=== PATIENT | female | born 1985 | race Caucasian/White ===

== ENCOUNTER → 2021-12-23 14:55 | Outpatient (BNVA) | payer BC, MEDICAID, SELFPAY | PROVIDERS: Visit Provider Internal Medicine | DX: E10.9 Type 1 diabetes mellitus without complications (principal); E03.9 Hypothyroidism, unspecified; E78.2 Mixed hyperlipidemia | CPT/HCPCS: 36415; 80053; 80061; 82044; 83036; 84439; 84443; 84480 ==

== ENCOUNTER 2022-04-27 03:05 | Inpatient (IN) | payer BC, MEDICAID, SELFPAY ==
[2022-04-27] VITALS (143 sets, daily range): BP systolic 111–166; BP diastolic 55–97; PULSE 88–136; RESP 12–34; TEMP 36.4–37.2; O2SAT 94–100; BMI 25.5
[2022-04-27 03:31] LABS: Glucose Point of Care 363 mg/dL (70-110)
[2022-04-27 04:03] LABS: Arterial Blood Gas Hematocrit 49.9 % (37-47); Base Excess ABG -21.9 mmol/L (-2.0-2.0); Blood Gas Allen Test Pos; Blood Gas Sample Site Radial, right; Blood Gas Sample Type Arterial; HCO3 ABG 4.7 mmol/L (22-26)
[2022-04-27 04:04] LABS: ABG PCO2 14.1 mmHg (35-45); ABG PH Result 7.13 (7.35-7.45)
[2022-04-27 04:08] LABS: Basophils # 0.1 10^3/uL (0.0-0.1); Basophils % 0.7 %; Eosinophils # 0.1 10^3/uL (0.0-0.8); Eosinophils % 0.4 %; Hematocrit 51.3 % (37.0-47.0); Hemoglobin 16.4 g/dL (11.5-15.3); Lymphocytes # 2.5 10^3/uL (0.8-4.8); Lymphocytes % 18.7 %; Mean Corpuscular Hemoglobin 28.4 pg (28.0-34.0); Mean Corpuscular Volume 88.9 fl (81-99); Mean Platelet Volume 9.5 fL (7.4-10.4); Monocytes # 1.1 10^3/uL (0.2-0.9); Monocytes % 8.2 %; Neutrophils # 9.67 10^3/uL (1.8-7.7); Neutrophils % 71.6 %; Nucleated Red Blood Cells % 0 %; Platelet Count 316 10^3/cmm (130-400); Red Blood Count 5.77 10^6/uL (4.1-5.3); Red Cell Distribution Width 14.5 % (12.1-15.1); White Blood Count 13.5 10^3/uL (4.0-10.0)
[2022-04-27] MEDS: insulin regular-human 100 units/1 mL 12 UNIT IVP (04:13)
[2022-04-27] MEDS: sodium chloride 0.9% 1,000 ML 999 ML IV ×2 (04:17→05:45)
--- NOTE | 2022-04-27 04:22 | W.ED.GENADLT ---
HPI - General Adult General: Chief complaint: General Medical Stated complaint: Sugar in 300 Diabetic Time Seen by Provider: 04/27/22 03:45 Source: patient History of Present Illness: 36-year-old female type I diabetic. She notes that she has felt ill for the last 48 hours or so. She is thrown up a couple of times. Currently she is nauseated. Her blood sugars been in the upper 300s, and she has been bolusing her insulin pump without improvement in her blood sugars. Onset (ago): hour(s) Radiation: other Severity: moderate Quality: other Pain Consistency: other Relieving factors: other Exacerbating factors: other Associated symptoms: Reports headache(s), nausea, vomiting and weakness (Generalized); Deny chest pain, confusion, cough, diaphoresis, dyspnea, fevers/chills or rash Review of Systems Const: Denies: fever(s) or diaphoresis ENMT: Denies: throat pain Card: Denies: chest pain Resp: Denies: dyspnea, productive cough or non-productive cough GI: Reports: nausea and vomiting Skin/Breast: Denies: rash Neuro: Reports: headache(s); Denies: confusion PFSH ED PFSH: Medical History Hyperlipemia, mixed Hypothyroid Type 1 diabetes Surgical History No history of previous surgery Family History Mother Hypertension Grandmother Hypertension Denies family history of Diabetes CAD (coronary artery disease) Chronic kidney disease (CKD) Family history of premature coronary artery disease Cancer Stroke Social History Smoking and tobacco status: never smoked Alcohol intake: never Lives independently: Yes Household members: significant other Marital status: Single Number of children: 0 Current occupational status: employed Current occupation: [employer] Sexually active: Yes Physical Exam Const: GENERAL APPEARANCE: cooperative and ill appearing; not frail appearing HENMT: COMMON NORMALS: normocephalic, atraumatic and Normal external nose present HEAD & SCALP: normocephalic and atraumatic FACE & SINUS: normal facial exam and face symmetric NOSE: Normal external nose present Eye: COMMON NORMALS: Equal, round and reactive pupils present and EOMs intact bilaterally PUPIL: Yes Equal, round and reactive pupils present Neck/C-Spine: GENERAL: Yes trachea midline Chest: CHEST: Yes Symmetrical chest wall rise Resp: COMMON NORMALS: normal respiratory effort, No retractions, No use of accessory muscles and clear to auscultation bilaterally AUSCULTATION: clear to auscultation bilaterally Cardio: COMMON NORMALS: regular rhythm RATE: tachycardic RHYTHM: regular rhythm GI: COMMON NORMALS: Normal to inspection, nondistended, normoactive bowel sounds present Extremity: COMMON NORMALS: no pedal edema Neuro: SENDY COMA SCALE: document GCS findings Sendy coma scale eye opening: Spontaneous Sendy coma scale verbal response: Orientated Sendy coma scale motor response: Obey commands [place] coma scale total score: 15 SENSORY EXAM: Yes extremities (intact) Psych: COMMON NORMALS: speech normal SPEECH: Yes normal speech Skin: COMMON NORMALS: no rashes or lesions noted GENERAL SKIN EXAM: no rashes or lesions noted Course Vital Signs: Vital signs: Vital Signs Temperature 98.7 F 04/27/22 16:40 Pulse Rate 94 04/27/22 16:40 Respiratory Rate 22 H 04/27/22 16:40 Blood Pressure 113/61 04/27/22 16:40 Pulse Oximetry 96 04/27/22 16:40 Oxygen Delivery Me thod 04/27/22 16:40 [facility] - General Adult Medical Decision Making 36-year-old female with high blood sugar. Her pH is 7.13 with PCO2 of 14, and HCO3 of 4.7. Serum ketones are pending. She is given a small insulin bolus, and will be placed on an insulin drip. IV saline going with 2 L bolus to start. She will require ICU admission. Electrolytes are pending. Sodium 128. Potassium 5.1. BUN and creatinine are essentially normal. Patient will go to the ICU on insulin drip. Hospitalist is aware Lab Data 04/27/22 03:43 04/27/22 03:43 Laboratory Results WBC 13.5 10^3/uL (4.0-10.0) H 04/27/22 03:43 RBC 5.77 10^6/uL (4.1-5.3) H 04/27/22 03:43 Hgb 16.4 g/dL (11.5-15.3) H 04/27/22 03:43 Hct 51.3 % (37.0-47.0) H 04/27/22 03:43 MCV 88.9 fl (81-99) 04/27/22 03:43 MCH 28.4 pg (28.0-34.0) 04/27/22 03:43 MCHC 32.0 g/dL (30.0-36.0) 04/27/22 03:43 RDW 14.5 % (12.1-15.1) 04/27/22 03:43 Plt Count 316 10^3/cmm (130-400) 04/27/22 03:43 MPV 9.5 fL (7.4-10.4) 04/27/22 03:43 Neut % (Auto) 71.6 % 04/27/22 03:43 Lymph % (Auto) 18.7 % 04/27/22 03:43 Coal % (Auto) 8.2 % 04/27/22 03:43 Eos % (Auto) 0.4 % 04/27/22 03:43 Baso % (Auto) 0.7 % 04/27/22 03:43 Neut # (Auto) 9.67 10^3/uL (1.8-7.7) H 04/27/22 03:43 Lymph # (Auto) 2.5 10^3/uL (0.8-4.8) 04/27/22 03:43 Coal # (Auto) 1.1 10^3/uL (0.2-0.9) H 04/27/22 03:43 Eos # (Auto) 0.1 10^3/uL (0.0-0.8) 04/27/22 03:43 Baso # (Auto) 0.1 10^3/uL (0.0-0.1) 04/27/22 03:43 Nucleated RBC % (auto) 0 % 04/27/22 03:43 Nucleated RBCs # 0.0 /100WBC 04/27/22 03:43 Specimen Type Arterial 04/27/22 03:50 Sample Site Radial, right 04/27/22 03:50 ABG pH 7.13 (7.35-7.45) L* 04/27/22 03:50 ABG pCO2 14.1 mmHg (35-45) L* 04/27/22 03:50 ABG pO2 122.0 mmHg (80.0-100.0) H 04/27/22 03:50 ABG HCO3 4.7 mmol/L (22-26) L 04/27/22 03:50 ABG Base Excess -21.9 mmol/L (-2.0-2.0) L 04/27/22 03:50 Nile Test Pos 04/27/22 03:50 Hematocrit 49.9 % (37-47) H 04/27/22 03:50 O2 Delivery Device None 04/27/22 03:50 FiO2 21.0 % 04/27/22 03:50 Answerer ID Camronlo 04/27/22 03:50 Sodium 128 mmol/L (136-145) L 04/27/22 03:43 Potassium 5.1 mmol/L (3.5-5.1) 04/27/22 03:43 Chloride 93 mmol/L (98-107) L 04/27/22 03:43 Carbon Dioxide 8 mmol/L (22-29) L* 04/27/22 03:43 Anion Gap 32.1 (5-19) H 04/27/22 03:43 BUN 12 mg/dL (6-20) 04/27/22 03:43 Creatinine 1.0 mg/dL (0.5-0.9) H 04/27/22 03:43 GFR Calculation 63.1 mL/min (90-130) L 04/27/22 03:43 Glucose 384 mg/dL (65-115) H 04/27/22 03:43 POC Glucose 310 mg/dL (70-110) H 04/27/22 05:10 Calculated Osmolality 282 mOsm/kg (285-295) L 04/27/22 03:43 Lactate 1.5 mmol/L (0.5-2.2) 04/27/22 03:43 Calcium 9.2 mg/dL (8.5-10.5) 04/27/22 03:43 Total Bilirubin 0.8 mg/dL (0.15-1.2) 04/27/22 03:43 AST 28 U/L (0-32) 04/27/22 03:43 ALT 62 U/L (0-33) H 04/27/22 03:43 Alkaline Phosphatase 90 U/L (35-105) 04/27/22 03:43 Total Protein 8.8 g/dL (6.6-8.7) H 04/27/22 03:43 Albumin 4.8 g/dL (3.5-5.2) 04/27/22 03:43 Globulin 4.0 g/dL (1.3-4.6) 04/27/22 03:43 HCG, Qual Negative (Negative) 04/27/22 03:43 Urine Color Light yellow (Yellow) 04/27/22 03:54 Urine Appearance Hazy (CLEAR) A 04/27/22 03:54 Urine pH 5 (5-7) 04/27/22 03:54 Ur Specific Erwin 1.025 (1.005-1.030) 04/27/22 03:54 Urine Protein Trace (Negative) 04/27/22 03:54 Urine Glucose (UA) 4+ (Normal) H 04/27/22 03:54 Urine Ketones 3+ (Negative) H 04/27/22 03:54 Urine Blood 2+ (Negative) H 04/27/22 03:54 Urine Nitrate Negative (Negative) 04/27/22 03:54 Urine Bilirubin Neg (Negative) 04/27/22 03:54 Urine Urobilinogen Neg mg/dL (Negative) 04/27/22 03:54 Ur Leukocyte Esterase Trace (Negative) H 04/27/22 03:54 Urine RBC 5-10 /hpf (0-2) H 04/27/22 03:54 Urine WBC 0-4 /hpf (0-5) H 04/27/22 03:54 Ur Squamous Epith Cells 15-25 /hpf (0-5) H 04/27/22 03:54 Amorphous Sediment 1+ /hpf 04/27/22 03:54 Urine Bacteria Trace /hpf (NONE) 04/27/22 03:54 Urine Mucus Trace /hpf 04/27/22 03:54 Serum Ketones Positive (Negative) H 04/27/22 03:43 Critical Care Time Critical Care Time: Critical Care Time: Yes Total Critical Care Time: 35 Attestation: This case had a high probability of a clinically significant, sudden, or life threatening deterioration of this patient's condition which required my full and direct attention, intervention and personal management. Time is independent of any procedures performed Discharge Plan Discharge Patient Disposition: Admitted As Inpatient Admit Provider: Johan Parada Clinical Impression: Diabetic ketoacidosis Condition: Fair Coding Level of Care Code ED Retail Training Manager for [facility] Steve
[2022-04-27 04:24] LABS: Add Urine Microscopic? YES; Bilirubin Urine Neg (Negative); Blood Urine 2+ (Negative); Glucose Urine UA 4+ (Normal); Ketones Urine 3+ (Negative); Leukocyte Esterase Urine Trace (Negative); Nitrate Urine Negative (Negative); Protein Urine Trace (Negative); Specific Gravity, Urine 1.025 (1.005-1.030); Urine Appearance Hazy (CLEAR); Urine Color Light yellow (Yellow); Urobilinogen Urine Neg (Negative); pH Urine 5 (5-7)
[2022-04-27 04:25] LABS: Ketone (Acetest) Serum Positive (Negative)
[2022-04-27 04:26] LABS: Amorphous Sediment Urine 1+ /hpf; Bacteria Urine TRACE /hpf; Mucus Urine TRACE /hpf; Squamous Epithelial Cell Urine 15-25 /hpf (0-5); WBC Urine 0-4 /hpf (0-5)
[2022-04-27 04:27] LABS: Add Urine Culture? No
[2022-04-27 04:28] LABS: HCG, Serum Qual Negative (Negative)
[2022-04-27 04:37] LABS: Alanine Aminotransferase 62 U/L (0-33); Albumin Level 4.8 g/dL (3.5-5.2); Alkaline Phosphatase 90 U/L (35-105); Anion Gap 32.1 (5-19); Aspartate Amino Transferase 28 U/L (0-32); Blood Urea Nitrogen 12 mg/dL (6-20); Calcium 9.2 mg/dL (8.5-10.5); Chloride 93 mmol/L (98-107); Glomerular Filtration Rate 63.1 mL/min (90-130); Glucose 384 mg/dL (65-115); Osmolality Calculated 282 mOsm/kg (285-295); Potassium 5.1 mmol/L (3.5-5.1); Sodium 128 mmol/L (136-145); Total Bilirubin 0.8 mg/dL (0.15-1.2); Total Protein 8.8 g/dL (6.6-8.7)
[2022-04-27 04:38] LABS: Lactate (Lactic Acid level) 1.5 mmol/L (0.5-2.2)
[2022-04-27 04:47] LABS: Carbon Dioxide 8 mmol/L (22-29)
--- NOTE | 2022-04-27 05:02 | PM.HP ---
Providers/Chief Complaint Admitting Physician: Johan Parada MD Primary Care Provider: Shruthi Hernandes MD Chief Complaint: Sugar in 300 Diabetic History of Present Illness Vania Yu is a 36 year old female with a past medical history significant for hyperlipidemia, hypothyroidism, and type 1 diabetes mellitus who presents with hyperglycemia x1 day. Patient also endorses associated nausea x1 day. She denies fevers, chills, chest pain, cough, dysuria, or diarrhea. She reports her blood sugars have been high all day in the 300s. She states that she has been unable to get them down like she is typically able to. Denies other alleviating or aggravating factors. In the emergency department, she was found to be diabetic ketoacidosis. She does endorse a history of prior DKA. Review of Systems Narrative: A complete review of systems was obtained and is negative except as stated in HPI. Medications/Allergies Home Medications Medication Instructions Recorded Confirmed Last Taken Type glucagon HCl 1 mg solution for 1 mg SUBCUT Q20M PRN hypoglycemia 12/30/21 12/30/21 Unknown Rx injection (Glucagon (HCl) #1 ea Emergency Kit) insulin aspart U-100 100 unit/mL 100 unit SUBCUT DAILY #90 mL 12/30/21 12/30/21 Unknown Rx subcutaneous solution (Novolog U-100 Insulin aspart) levothyroxine 50 mcg tablet 50 mcg PO DAILY #90 tabs 12/30/21 12/30/21 Unknown Rx norethindrone 0.5 mg-ethinyl See Rx Instructions .Route 03/09/22 Unknown Rx estradiol 35 mcg tablet (Nortrel) .COMPLEX #84 tabs Allergies Allergy/AdvReac Type Severity Reaction Status Date / Time No Known Allergies Allergy Unverified 12/30/21 12:10 PFSH Acute PFSH: Medical History Hyperlipemia, mixed Hypothyroid Type 1 diabetes Surgical History No history of previous surgery Family History Mother Hypertension Grandmother Hypertension Denies family history of Diabetes CAD (coronary artery disease) Chronic kidney disease (CKD) Family history of premature coronary artery disease Cancer Stroke Social History Smoking and tobacco status: never smoked Alcohol intake: never Lives independently: Yes Household members: significant other Marital status: Single Number of children: 0 Current occupational status: employed Current occupation: [employer] Sexually active: Yes Vitals/I&O/Wt Last Vital Signs Temp 97.5 F L 04/27/22 03:14 Pulse 120 H 04/27/22 03:46 Resp 16 04/27/22 03:14 BP 146/84 04/27/22 03:46 Pulse Ox 100 04/27/22 03:46 O2 Del Method 04/27/22 03:46 Weight last 48 hrs Weight 59.421 kg Physical Exam Narrative: General: Patient is awake. Appears fatigued. Pleasant. Head: Normocephalic. Atraumatic. EOM intact. Dry mucous membranes. Neck: No JVD. Cardiovascular: RRR. No gallops. No murmurs. No peripheral edema. Tachycardic. Lungs: Clear to auscultation, no use of accessory muscles, no crackles or wheezes. Skin: No jaundice. No rashes. Abdomen: Normal bowel sounds, abdomen soft and nontender. Genito Urinary: Genital exam not performed since complaints not related. Rectal: Rectal exam not performed since no symptoms indicated blood loss. Extremities: No cyanosis or clubbing. Musculoskeletal: No swollen or erythematous joints. Neurological: Moves all 4 extremities. No myoclonus. Data 04/27/22 03:43 04/27/22 03:43 A&P Assessment and plan (1) Diabetic ketoacidosis: Associated with dehydration Teacher Physically Impaired unclear Infectious work-up negative so far No localizing symptoms other than nausea DKA protocol IV insulin infusion Renal panel every 4 hours Start NS at 200 mL/h Nurse communication contact provider when blood sugar drops below 250 N.p.o. (2) Type 1 diabetes: Management as above (3) Hyperlipemia, mixed: Diet controlled (4) Hypothyroid: Continue home Synthroid Plan DVT prophylaxis: Low risk CODE STATUS: Full code Attestations Medical Necessity Statement*: Patient presents with hyperglycemia, found to have diabetic ketoacidosis requiring IV insulin infusion, serial labs, and IV fluid resuscitation. Critical Care Time: The high probability of a clinically significant, sudden or life threatening deterioration of the patient's endocrine system(s) required my full and direct attention, intervention and personal management. The critical care time is as shown. This time is in addition to time spent performing any reported procedures but includes the following: [x] Data and vital sign review and interpretation [x] Patient assessment, examination and intervention [x] Documentation [x] Medication orders and management Critical Care Time (min): 35 Coding Level of Care Code Acute Code for Chg Fwd Diagnoses Diabetic ketoacidosis E11.10 Type 1 diabetes E10.9 Hyperlipemia, mixed E78.2 Hypothyroid E03.9
[2022-04-27 05:26] LABS: Glucose Point of Care 310 mg/dL (70-110)
[2022-04-27] MEDS: insulin regular-human 250 UNIT in sodium chloride 0.9% 250 ML 7.58 UNIT IV (05:46)
[2022-04-27 05:51] LABS: Glucose Point of Care 314 mg/dL (70-110)
[2022-04-27 05:54] LABS: Albumin Level 4.6 g/dL (3.5-5.2); Anion Gap 29.7 (5-19); Blood Urea Nitrogen 13 mg/dL (6-20); Calcium 8.9 mg/dL (8.5-10.5); Chloride 97 mmol/L (98-107); Glomerular Filtration Rate 63.1 mL/min (90-130); Glucose 294 mg/dL (65-115); Phosphorus 2.5 mg/dL (2.5-4.5); Potassium 3.7 mmol/L (3.5-5.1); Sodium 130 mmol/L (136-145)
[2022-04-27 05:58] LABS: Carbon Dioxide 7 mmol/L (22-29)
[2022-04-27 06:41] LABS: Glucose Point of Care 253 mg/dL (70-110)
[2022-04-27] MEDS: dextrose 5%-sod chloride 0.9% 1,000 ML 200 ML IV ×3 (07:57→17:17)
[2022-04-27] MEDS: levothyroxine 50 mcg Tablet PO (08:03)
[2022-04-27 08:36] LABS: Glucose Point of Care 179 mg/dL (70-110)
[2022-04-27 09:10] LABS: Glucose Point of Care 208 mg/dL (70-110)
[2022-04-27 09:42] LABS: Albumin Level 3.7 g/dL (3.5-5.2); Anion Gap 17.6 (5-19); Blood Urea Nitrogen 12 mg/dL (6-20); Calcium 7.7 mg/dL (8.5-10.5); Carbon Dioxide 12 mmol/L (22-29); Chloride 104 mmol/L (98-107); Creatinine Clr Calc Pharmacy 105.5059; Glomerular Filtration Rate 113.8 mL/min (90-130); Glucose 216 mg/dL (65-115); Potassium 3.6 mmol/L (3.5-5.1); Sodium 130 mmol/L (136-145)
[2022-04-27 09:56] LABS: Magnesium 1.7 mg/dL (1.7-2.3)
[2022-04-27 10:02] LABS: Phosphorus 0.9 mg/dL (2.5-4.5)
[2022-04-27 10:22] LABS: Glucose Point of Care 225 mg/dL (70-110)
[2022-04-27 10:56] LABS: Glucose Point of Care 236 mg/dL (70-110)
[2022-04-27 12:19] LABS: Glucose Point of Care 197 mg/dL (70-110)
--- NOTE | 2022-04-27 12:32 | PM.PN ---
Subjective Subjective: She is feeling slightly better. Currently in pain and she is having her blood drawn. Otherwise denies any nausea or vomiting. No abdominal pain. Has not had chest pain or shortness of breath. Vitals/I&O/Wt Last Vital Signs Temp 98.7 F 04/27/22 11:15 Pulse 103 H 04/27/22 11:45 Resp 20 H 04/27/22 11:45 BP 111/55 04/27/22 11:45 Pulse Ox 97 04/27/22 11:45 O2 Del Method 04/27/22 11:15 04/26/22 04/27/22 04/27/22 22:59 06:59 14:59 Intake Total Balance Weight last 48 hrs Weight 59.421 kg Physical Exam Const: COMMON NORMALS: patient oriented x3 and alert GENERAL APPEARANCE: cooperative ORIENTATION/CONSCIOUSNESS: Yes awake HENMT: COMMON NORMALS: oropharynx normal Neck/C-Spine: COMMON NORMALS: no JVD Resp: COMMON NORMALS: normal respiratory effort and clear to auscultation bilaterally AUSCULTATION: clear to auscultation bilaterally Cardio: COMMON NORMALS: no JVD, regular rhythm, S1 normal heart sound present, S2 normal heart sound present and No murmurs present (Cardio) RHYTHM: regular rhythm HEART SOUNDS: S1 normal heart sound present and S2 normal heart sound present GI: COMMON NORMALS: Normal to inspection, nondistended, normoactive bowel sounds present, Soft to palpation and non-tender PALPATION: Yes Soft to palpation Extremity: COMMON NORMALS: no joint enlargement and no pedal edema Neuro: COMMON NORMALS: patient oriented x3 and moves all extremities SENSORIUM/ORIENTATION: Yes alert Skin: COMMON NORMALS: no rashes or lesions noted GENERAL SKIN EXAM: no rashes or lesions noted Data 04/27/22 03:43 04/27/22 09:08 A&P Assessment and plan (1) Diabetic ketoacidosis: On recheck labs to persistent acidosis, persistent anion gap, low bicarb. Potassium soft. Recheck Phos low at 0.9. Given potassium phosphate. We will additionally give 40 mill equivalents potassium. Discussed with her continuation of insulin drip, IV hydration fluid combination with D5 plus glucose had come down below 200. Glucose target 150-200. Follow-up chemistries. Tachycardia improving. 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 (2) Type 1 diabetes: Management as above (3) Hyperlipemia, mixed: Diet controlled (4) Hypothyroid: Continue home Synthroid Plan DVT prophylaxis: Heparin CODE STATUS: Full code Attestations Medical Necessity Statement*: Continue admission for assessment management of DKA Coding Level of Care Code Critical Care >/= 30 minutes Critical care time (in minutes): 40 The high probability of a clinically significant, sudden or life threatening deterioration, as referenced in this documentation, required my full and direct attention, intervention and personal management. The critical care time shown is in addition to time spent performing any reported separately billable procedures and includes the following: [x] Data and vital sign review and interpretation [x] Patient assessment, examination and intervention [x] Medication orders and management [x] Patient/Family updates as able [x] Care Coordination and Documentation. Exam Comprehensive Diagnoses Diabetic ketoacidosis E11.10 Type 1 diabetes E10.9 Hyperlipemia, mixed E78.2 Hypothyroid E03.9
--- NOTE | 2022-04-27 12:33 | PC.NURSE ---
Patient has received over a liter of fluids so far this shift with no urine output. Nurse bladder scanned patient shows 270mL. Patient has no urge to urinate, no discomfort, bladder does not feel distended.
[2022-04-27] MEDS: lidocaine 1% 5 ML in potassium chloride premix 100 ML 26.25 ML IV (12:43)
[2022-04-27] MEDS: heparin 5,000 unit/mL INJ 1 mL 5000 UNIT SUBCUT (13:03)
[2022-04-27 13:09] LABS: Glucose Point of Care 188 mg/dL (70-110)
[2022-04-27 13:53] LABS: Albumin Level 3.7 g/dL (3.5-5.2); Anion Gap 11.4 (5-19); Blood Urea Nitrogen 7 mg/dL (6-20); Calcium 7.8 mg/dL (8.5-10.5); Carbon Dioxide 15 mmol/L (22-29); Chloride 109 mmol/L (98-107); Glomerular Filtration Rate 140.4 mL/min (90-130); Glucose 168 mg/dL (65-115); Phosphorus 1.1 mg/dL (2.5-4.5); Potassium 3.4 mmol/L (3.5-5.1); Sodium 132 mmol/L (136-145)
[2022-04-27 14:20] LABS: Glucose Point of Care 144 mg/dL (70-110)
[2022-04-27 15:20] LABS: Glucose Point of Care 143 mg/dL (70-110)
[2022-04-27] MEDS: insulin glargine 100 units/1 mL 30 UNIT SUBCUT (16:14)
[2022-04-27 16:24] LABS: Glucose Point of Care 148 mg/dL (70-110)
[2022-04-27 17:21] LABS: Glucose Point of Care 136 mg/dL (70-110)
[2022-04-27] MEDS: ondansetron 2 mg/ML SDV 2 mL 4 MG IVP (17:42)
[2022-04-27 17:58] LABS: Albumin Level 3.3 g/dL (3.5-5.2); Blood Urea Nitrogen 7 mg/dL (6-20); Calcium 7.4 mg/dL (8.5-10.5); Carbon Dioxide 16 mmol/L (22-29); Chloride 112 mmol/L (98-107); Glomerular Filtration Rate 140.4 mL/min (90-130); Glucose 149 mg/dL (65-115); Phosphorus 1.1 mg/dL (2.5-4.5); Sodium 134 mmol/L (136-145)
[2022-04-27 17:59] LABS: Anion Gap 9.7 (5-19); Potassium 3.7 mmol/L (3.5-5.1)
--- NOTE | 2022-04-27 18:32 | PC.NURSE ---
SHift SUmmary: Uneventful shift. Anion gap closed, patient transitioned to Subq insulin. Started on a consistent carb diet. Despite receiving over 2400ML of fluids, no urine output today. Bladder scan shows less than 200 retained, bun/creatinine are within normal limits, lungs sound clear, Physician aware.
[2022-04-27 21:30] LABS: Glucose Point of Care 365 mg/dL (70-110)
[2022-04-27] MEDS: insulin lispro 100 unit/1 mL SUBCUT (21:55)
--- NOTE | 2022-04-27 22:01 | PC.NURSE ---
TRANSFER FROM ICU Pt was received to room from ICU at 2119. Alert and oriented. Denies pain. IV fluids infusing at 50ml/hr rate. monitor tech applied. Received sliding scale insulin dose
[2022-04-27 22:20] LABS: Albumin Level 3.6 g/dL (3.5-5.2); Blood Urea Nitrogen 8 mg/dL (6-20); Calcium 7.9 mg/dL (8.5-10.5); Carbon Dioxide 16 mmol/L (22-29); Chloride 107 mmol/L (98-107); Creatinine Clr Calc Pharmacy 105.5059; Glomerular Filtration Rate 113.8 mL/min (90-130); Glucose 365 mg/dL (65-115); Phosphorus 2.4 mg/dL (2.5-4.5); Sodium 135 mmol/L (136-145)
[2022-04-27 22:22] LABS: Anion Gap 16.1 (5-19); Potassium 4.1 mmol/L (3.5-5.1)
[2022-04-28 04:00] VITALS: BP 111/66; PULSE 89; RESP 117; TEMP 36.8; O2SAT 98
[2022-04-28 06:00] VITALS: PULSE 96
[2022-04-28 06:08] LABS: Basophils # 0.1 10^3/uL (0.0-0.1); Basophils % 0.8 %; Eosinophils # 0.1 10^3/uL (0.0-0.8); Eosinophils % 1.2 %; Hematocrit 41.8 % (37.0-47.0); Hemoglobin 13.7 g/dL (11.5-15.3); Lymphocytes # 2.2 10^3/uL (0.8-4.8); Lymphocytes % 30.3 %; Mean Corpuscular HGB Conc 32.8 g/dL (30.0-36.0); Mean Corpuscular Hemoglobin 27.8 pg (28.0-34.0); Mean Platelet Volume 9.2 fL (7.4-10.4); Monocytes # 0.6 10^3/uL (0.2-0.9); Monocytes % 8.3 %; Neutrophils # 4.28 10^3/uL (1.8-7.7); Neutrophils % 59.3 %; Nucleated Red Blood Cells % 0 %; Platelet Count 197 10^3/cmm (130-400); Red Blood Count 4.92 10^6/uL (4.1-5.3); Red Cell Distribution Width 14.5 % (12.1-15.1); White Blood Count 7.2 10^3/uL (4.0-10.0)
[2022-04-28 06:29] LABS: Alanine Aminotransferase 38 U/L (0-33); Albumin Level 3.8 g/dL (3.5-5.2); Alkaline Phosphatase 67 U/L (35-105); Anion Gap 14.4 (5-19); Aspartate Amino Transferase 22 U/L (0-32); Blood Urea Nitrogen 6 mg/dL (6-20); Calcium 8.3 mg/dL (8.5-10.5); Carbon Dioxide 19 mmol/L (22-29); Chloride 105 mmol/L (98-107); Globulin 3.1 g/dL (1.3-4.6); Glomerular Filtration Rate 140.4 mL/min (90-130); Glucose 229 mg/dL (65-115); Magnesium 1.7 mg/dL (1.7-2.3); Osmolality Calculated 285 mOsm/kg (285-295); Phosphorus 1.9 mg/dL (2.5-4.5); Potassium 3.4 mmol/L (3.5-5.1); Sodium 135 mmol/L (136-145); Total Bilirubin 0.9 mg/dL (0.15-1.2); Total Protein 6.9 g/dL (6.6-8.7)
[2022-04-28 06:30] LABS: Glucose Point of Care 197 mg/dL (70-110)
[2022-04-28 08:00] VITALS: BP 118/70; PULSE 91; RESP 17; TEMP 36.7; O2SAT 98
[2022-04-28] MEDS: insulin lispro 100 unit/1 mL SUBCUT (08:29)
[2022-04-28] MEDS: levothyroxine 50 mcg Tablet PO (08:29)
[2022-04-28] MEDS: potassium chloride ER 20 mEq Tablet 40 MEQ PO (09:35)
[2022-04-28] MEDS: magnesium sulfate premix 2 GM/50 ML PIGGYBACK IV (09:35)
--- NOTE | 2022-04-28 09:57 | PM.DCS ---
Discharge Providers Date of Admission: 04/27/22 05:24 Date of Discharge: April 28, 2022 Attending Provider at Admission: Johan Parada MD Attending Provider at Discharge: Randell Toro Primary Care Provider: Shruthi Hernandes MD Diagnoses at Discharge Discharge Diagnosis (1) Diabetic ketoacidosis: Status: Acute (2) Type 1 diabetes: Status: Chronic (3) Hyperlipemia, mixed: Status: Chronic (4) Hypothyroid: Status: Chronic Reason for Visit Reason for Visit: Sugar in 300 Diabetic Hospital Course Hospital Course Pleasant 30 fibrillating with history of DM1 managed with insulin pump was admitted for assessment management of DKA after presenting with hyperglycemia, nausea, generalized weakness, without otherwise an obvious trigger. On presentation with metabolic acidosis, anion gap 32.1, bicarb 8, glucose in 300s. No obvious trigger, without finding of obvious source of infection, has insulin at home, without pump malfunction. Has been rotating injection sites. Was admitted to ICU, treated with volume resuscitation, electrolyte replacement, insulin drip, initially n.p.o.. Acidosis gradually improved. With anion gap closed, bicarb improved transition to subcutaneous insulin therapy. Resumed on oral diet. Continues to do well. This morning given additional potassium and magnesium. Feels much better today. He is ready to return home. Has a follow-up appointment with her manager compensation in 2 weeks. Physical Exam Const: COMMON NORMALS: patient oriented x3 and alert GENERAL APPEARANCE: cooperative ORIENTATION/CONSCIOUSNESS: Yes awake HENMT: COMMON NORMALS: oropharynx normal Neck/C-Spine: COMMON NORMALS: no JVD Resp: COMMON NORMALS: normal respiratory effort and clear to auscultation bilaterally AUSCULTATION: clear to auscultation bilaterally Cardio: COMMON NORMALS: no JVD, regular rhythm, S1 normal heart sound present, S2 normal heart sound present and No murmurs present (Cardio) RHYTHM: regular rhythm HEART SOUNDS: S1 normal heart sound present and S2 normal heart sound present GI: COMMON NORMALS: Normal to inspection, nondistended, normoactive bowel sounds present, Soft to palpation and non-tender PALPATION: Yes Soft to palpation Extremity: COMMON NORMALS: no joint enlargement and no pedal edema Neuro: COMMON NORMALS: patient oriented x3 and moves all extremities SENSORIUM/ORIENTATION: Yes alert Skin: COMMON NORMALS: no rashes or lesions noted GENERAL SKIN EXAM: no rashes or lesions noted Discharge Data Studies Completed and Pending Pending at discharge Category Date Time Status Comprehensive Metabolic Panel AM LABS Lab 04/29/22 04:00 Ordered Comprehensive Metabolic Panel AM LABS Lab 04/30/22 04:00 Ordered Laboratory Results WBC 7.2 10^3/uL (4.0-10.0) 04/28/22 05:56 RBC 4.92 10^6/uL (4.1-5.3) 04/28/22 05:56 Hgb 13.7 g/dL (11.5-15.3) 04/28/22 05:56 Hct 41.8 % (37.0-47.0) 04/28/22 05:56 MCV 85.0 fl (81-99) 04/28/22 05:56 MCH 27.8 pg (28.0-34.0) L 04/28/22 05:56 MCHC 32.8 g/dL (30.0-36.0) 04/28/22 05:56 RDW 14.5 % (12.1-15.1) 04/28/22 05:56 Plt Count 197 10^3/cmm (130-400) D 04/28/22 05:56 MPV 9.2 fL (7.4-10.4) 04/28/22 05:56 Neut % (Auto) 59.3 % 04/28/22 05:56 Lymph % (Auto) 30.3 % 04/28/22 05:56 [place] % (Auto) 8.3 % 04/28/22 05:56 Eos % (Auto) 1.2 % 04/28/22 05:56 Baso % (Auto) 0.8 % 04/28/22 05:56 Neut # (Auto) 4.28 10^3/uL (1.8-7.7) 04/28/22 05:56 Lymph # (Auto) 2.2 10^3/uL (0.8-4.8) 04/28/22 05:56 [place] # (Auto) 0.6 10^3/uL (0.2-0.9) 04/28/22 05:56 Eos # (Auto) 0.1 10^3/uL (0.0-0.8) 04/28/22 05:56 Baso # (Auto) 0.1 10^3/uL (0.0-0.1) 04/28/22 05:56 Nucleated RBC % (auto) 0 % 04/28/22 05:56 Nucleated RBCs # 0.0 /100WBC 04/28/22 05:56 Specimen Type Arterial 04/27/22 03:50 Sample Site Radial, right 04/27/22 03:50 ABG pH 7.13 (7.35-7.45) L* 04/27/22 03:50 ABG pCO2 14.1 mmHg (35-45) L* 04/27/22 03:50 ABG pO2 122.0 mmHg (80.0-100.0) H 04/27/22 03:50 ABG HCO3 4.7 mmol/L (22-26) L 04/27/22 03:50 ABG Base Excess -21.9 mmol/L (-2.0-2.0) L 04/27/22 03:50 Nile Test Pos 04/27/22 03:50 Hematocrit 49.9 % (37-47) H 04/27/22 03:50 O2 Delivery Device None 04/27/22 03:50 FiO2 21.0 % 04/27/22 03:50 Waterworks Supervisor ID [facility] 04/27/22 03:50 Sodium 135 mmol/L (136-145) L 04/28/22 05:56 Potassium 3.4 mmol/L (3.5-5.1) L 04/28/22 05:56 Chloride 105 mmol/L (98-107) 04/28/22 05:56 Carbon Dioxide 19 mmol/L (22-29) L 04/28/22 05:56 Anion Gap 14.4 (5-19) 04/28/22 05:56 BUN 6 mg/dL (6-20) 04/28/22 05:56 Creatinine 0.5 mg/dL (0.5-0.9) 04/28/22 05:56 GFR Calculation 140.4 mL/min (90-130) H 04/28/22 05:56 Glucose 229 mg/dL (65-115) H 04/28/22 05:56 POC Glucose 197 mg/dL (70-110) H 04/28/22 06:24 Calculated Osmolality 285 mOsm/kg (285-295) 04/28/22 05:56 Lactate 1.5 mmol/L (0.5-2.2) 04/27/22 03:43 Calcium 8.3 mg/dL (8.5-10.5) L 04/28/22 05:56 Phosphorus 1.9 mg/dL (2.5-4.5) L 04/28/22 05:56 Magnesium 1.7 mg/dL (1.7-2.3) 04/28/22 05:56 Total Bilirubin 0.9 mg/dL (0.15-1.2) 04/28/22 05:56 AST 22 U/L (0-32) 04/28/22 05:56 ALT 38 U/L (0-33) H 04/28/22 05:56 Alkaline Phosphatase 67 U/L (35-105) 04/28/22 05:56 Total Protein 6.9 g/dL (6.6-8.7) 04/28/22 05:56 Albumin 3.8 g/dL (3.5-5.2) 04/28/22 05:56 Globulin 3.1 g/dL (1.3-4.6) 04/28/22 05:56 HCG, Qual Negative (Negative) 04/27/22 03:43 Urine Color Light yellow (Yellow) 04/27/22 03:54 Urine Appearance Hazy (CLEAR) A 04/27/22 03:54 Urine pH 5 (5-7) 04/27/22 03:54 Ur Specific [place] 1.025 (1.005-1.030) 04/27/22 03:54 Urine Protein Trace (Negative) 04/27/22 03:54 Urine Glucose (UA) 4+ (Normal) H 04/27/22 03:54 Urine Ketones 3+ (Negative) H 04/27/22 03:54 Urine Blood 2+ (Negative) H 04/27/22 03:54 Urine Nitrate Negative (Negative) 04/27/22 03:54 Urine Bilirubin Neg (Negative) 04/27/22 03:54 Urine Urobilinogen Neg mg/dL (Negative) 04/27/22 03:54 Ur Leukocyte Esterase Trace (Negative) H 04/27/22 03:54 Urine RBC 5-10 /hpf (0-2) H 04/27/22 03:54 Urine WBC 0-4 /hpf (0-5) H 04/27/22 03:54 Ur Squamous Epith Cells 15-25 /hpf (0-5) H 04/27/22 03:54 Amorphous Sediment 1+ /hpf 04/27/22 03:54 Urine Bacteria Trace /hpf (NONE) 04/27/22 03:54 Urine Mucus Trace /hpf 04/27/22 03:54 Serum Ketones Positive (Negative) H 04/27/22 03:43 Vitals Last Vital Signs Temp 98.1 F 04/28/22 08:00 Pulse 91 04/28/22 08:00 Resp 17 04/28/22 08:00 BP 118/70 04/28/22 08:00 Pulse Ox 98 04/28/22 08:00 O2 Del Method 04/27/22 16:40 Discharge Plan Discharge Patient Disposition: Home Condition: Fair Prescriptions: Continued insulin aspart U-100 [Novolog U-100 Insulin aspart] 100 unit/mL solution 100 unit SUBCUT DAILY Qty: 90 3RF Rx Instructions: thorugh insulin pump levothyroxine 50 mcg tablet 50 mcg PO DAILY Qty: 90 3RF Glucagon (HCl) Emergency Kit 1 mg recon soln 1 mg SUBCUT Q20M PRN (Reason: hypoglycemia) Qty: 1 0RF Rx Instructions: until target blood sugar attained Nortrel 0.5/35 (28) 0.5-35 mg-mcg tablet 1 tab PO DAILY Discharge Orders: Discharge Order (Routine); Ordered 04/28/22 Ordered By: Randell Toro Referrals: Shruthi Hernandes MD [Primary Care Provider] - 4-7 days Discharge Diet: Diabetic Patient Instructions: Diabetic Ketoacidosis (GEN) Activity Restrictions/Additional Instructions: Resume glucose monitoring, insulin via pump, follow-up with your manager compensation for reassessment after DKA. Follow-up with your primary doctor for reassessment of electrolytes including potassium, magnesium, phosphorus. Include foods rich in potassium, include dairy products for phosphorus repletion. Follow-up with your primary doctor for reassessment of urine for resolution of microscopic hematuria, if not resolving may need additional evaluation. Discharge Attestations Time Spent in Discharge Care*: greater than 30 min Quality Metrics Clinical Quality Measures [ No reported AMI, CVA or VTE this stay] Coding Level of Care Code Acute Code for Chg Fwd Diagnoses Diabetic ketoacidosis E11.10 Type 1 diabetes E10.9 Hyperlipemia, mixed E78.2 Hypothyroid E03.9
--- NOTE | 2022-04-28 10:17 | PC.CHAP ---
Pastoral Care Encounter/Spiritual Assessment Type of Contact [] Declined mac artist visit [] Patient/Family/Request visit [] Outpatient visit [] Follow-up visit [] Physician referral [] Code/Alert [x] Routine visit [] Staff referral [] Actively dying [] Patient sleeping [] Family support [] [] Out of room [] Palliative care [] [] Receiving care in room [] Pre-surgical visit [] Trauma [] Long length of stay [] ICU visit [] Other: Relational/Emotional Strength [x] Patient feels connected with others/family/visitors/staff [] Distress [] Loneliness/isolation [] Abandonment Spirituality of Patient [] Person of Renate [] Attends Moravian of their Renate [x] Believes in Prayer [] Reads Bible or Uatsdin materials [] There are Spiritual issues to be addressed Cable Tv Installer Interventions [x] Prayer [x] Active listening [] Non-anxious presence [x] Spiritual/emotional support [] Crisis/trauma care [] Spiritual counseling [] Bereavement support [] Provided bereavement packet [] Provided Bible/devotional materials [] Provided toy/stuffed animal, coloring book to patient or family member [] Provided Communion [] Anointing/[place] [] Salvation [x] Completed spiritual assessment [] Other: Impact on Illness or Injury [] Angry [] Fearful [] Anxious [] Often cries [] Exhaustion [] Unable to work [] Unable to attend orthodox [] Unable to walk/stand [] Unable to read [] Unable to drive [] Unable to eat/drink [] Unable to sleep [] Unable to be with family [] Patient intubated [] Other: Summary Time spent with patient 10 min
[2022-04-28 11:51] VITALS: BP 118/70; PULSE 91; RESP 17; TEMP 36.7; O2SAT 98
== END 2022-04-28 11:51 | disposition home or self-care (01) | DRG 639 ==
LOC: ER 05:01 → ICU 06:48 → MEDSURG 21:19
PROVIDERS: Admitting Provider Internal Medicine; Emergency Provider Emergency Medicine; PCP Family Medicine; Visit Provider Internal Medicine
DX: E10.10 Type 1 diabetes mellitus with ketoacidosis without coma (principal); E78.2 Mixed hyperlipidemia; E03.9 Hypothyroidism, unspecified; Z79.4 Long term (current) use of insulin
CPT/HCPCS: 36415; 36416; 80053; 80069; 81001; 82009; 82803; 82962; 83605; 83735; 84100; 84703; 85025; 96365; 96366; 96372; 96375; 99285; J1644; J1815; J2405; J3475; J3480; J7030; J7042; J7050

== ENCOUNTER → 2022-05-06 13:29 | Outpatient (BNVA) | payer BC, MEDICAID, SELFPAY | PROVIDERS: PCP Family Medicine; Visit Provider Family Medicine | DX: E10.9 Type 1 diabetes mellitus without complications (principal); Z09 Encounter for follow-up examination after completed treatment for conditions other than malignant neoplasm | CPT/HCPCS: 80053 ==

== ENCOUNTER 2022-06-21 18:45 | Inpatient (IN) | payer BC, MEDICAID, SELFPAY ==
[2022-06-21] VITALS (8 sets, daily range): BP systolic 110–137; BP diastolic 44–77; PULSE 112–142; RESP 16–29; TEMP 36.6–36.7; O2SAT 99–100; BMI 27.3; BMI 27.5
[2022-06-21 18:59] LABS: Glucose Point of Care 451 mg/dL (70-110)
--- NOTE | 2022-06-21 19:01 | W.ED.RECABL ---
Documented by User: SUSANNAH Calvillo 06/21/22 21:04 HPI - Recheck/Abnormal Lab/Rx General: Chief Complaint: Recheck/Abnormal Lab/Rx Stated Complaint: high bs, n/v Time Seen by Provider: 06/21/22 19:00 History of Present Illness: 37-year-old female comes in today with complaints of nausea and vomiting starting last night. Patient has a history of diabetes type 1 since juvenile onset. Patient uses a insulin pump and reports that no problems has been noted with the pump. Patient has noticed increase in blood glucose. Glucose check was 450 in triage. Patient reports no pain or fever. Patient denies any blood in vomit or stool. Patient reports not feeling well after eating [place] fried chicken last night. Review of Systems General: Reports: 10 or more systems reviewed and unremarkable except in HPI and below Const: Denies: fever(s) Eyes: Denies: change in vision ENMT: Denies: throat pain Card: Denies: chest pain Resp: Denies: dyspnea GI: Reports: nausea and vomiting; Denies: diarrhea or constipation : Denies: difficulty voiding Musc: Reports: back pain (Mild low back pain described as chronic) Skin/Breast: Denies: rash Neuro: Denies: headache(s) PFSH ED PFSH: Medical History Hyperlipemia, mixed Hypothyroid Type 1 diabetes Surgical History No history of previous surgery Family History Mother Hypertension Grandmother Hypertension Denies family history of Diabetes CAD (coronary artery disease) Chronic kidney disease (CKD) Family history of premature coronary artery disease Cancer Stroke Social History Smoking and tobacco status: never smoked Alcohol intake: never Lives independently: Yes Household members: significant other Marital status: Single Number of children: 0 Current occupational status: employed 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 Sexually active: Yes Physical Exam Const: COMMON NORMALS: alert HENMT: COMMON NORMALS: normocephalic HEAD & SCALP: normocephalic MOUTH: Normal oral and palatal mucosa present (Dry) Neck/C-Spine: COMMON NORMALS: full ROM Resp: COMMON NORMALS: normal respiratory effort and clear to auscultation bilaterally AUSCULTATION: clear to auscultation bilaterally Cardio: COMMON NORMALS: regular rhythm RATE: tachycardic RHYTHM: regular rhythm GI: COMMON NORMALS: Soft to palpation and non-tender PALPATION: Yes Soft to palpation Back/Pelvis: LUMBAR SPINE/LOWER BACK: Yes paraspinal muscle tenderness (Mild bilateral lower) Extremity: COMMON NORMALS: normal to inspection Neuro: SENSORIUM/ORIENTATION: Yes alert Skin: COMMON NORMALS: turgor normal GENERAL SKIN EXAM: turgor normal Course Vital Signs: Vital signs: Vital Signs Temperature 97.9 F 06/21/22 18:52 Pulse Rate 112 H 06/21/22 18:52 Respiratory Rate 16 06/21/22 18:52 Blood Pressure 130/77 06/21/22 18:52 Pulse Oximetry 99 06/21/22 18:52 Oxygen Delivery Me thod 06/21/22 18:52 MDM - Recheck/Abnormal Lab/Rx Medical Decision Making 37-year-old female comes in today for complaints of nausea vomiting since last night. Patient has a history of type 1 diabetes with prior episodes of DKA last episode being in April. On exam patient appears unwell. Patient is alert and responding appropriate questions. Patient is tachycardic. Abdomen soft nontender. Patient has some mild muscle tenderness in the low back. Blood glucose on triage was 450. Vital signs besides tachycardia are normal. Differential diagnosis DKA, dehydration, gastroenteritis, gastroparesis. CBC noted some leukocytosis at 20,000. CMP had a blood glucose of 507, sodium was 134, anion gap was 30, and carbon dioxide was 10. Liver enzymes were slightly elevated. Gallbladder ultrasound was unremarkable. Urinalysis had 4+ glucose and 3+ ketones. Serum ketones was negative. Patient was infused with 2 L of IV fluids. Patient was started on IV insulin drip after DC of insulin pump. Patient appeared to be in diabetic ketoacidosis. Reviewed exam with Dr. Workman who agreed to plan and need for admission. Patient reported understanding of care plan and agreed. Hospitalist will be consulted for admission plan. Lab Data 06/21/22 19:28 06/21/22 19:28 Radiology Impressions Gallbladder Ultrasound 06/21/22 20:21 IMPRESSION: No acute sonographic findings. Laboratory Results WBC 20.3 10^3/uL (4.0-10.0) H 06/21/22: RBC 5.20 10^6/uL (4.1-5.3) 06/21/22: Hgb 14.4 g/dL (11.5-15.3) 06/21/22: Hct 46.1 % (37.0-47.0) 06/21/22: MCV 88.7 fl (81-99) 06/21/22: MCH 27.7 pg (28.0-34.0) L 06/21/22: MCHC 31.2 g/dL (30.0-36.0) 06/21/22: RDW 12.9 % (12.1-15.1) 06/21/22 Plt Count 323 10^3/cmm (130-400) 06/21/22: MPV 9.5 fL (7.4-10.4) 06/21/22: Neut % (Auto) 88.2 % 06/21/22: Lymph % (Auto) 7.2 % 06/21/22: [place] % (Auto) 3.5 % 06/21/22: Eos % (Auto) 0.0 % 06/21/22 Baso % (Auto) 0.4 % 06/21/22 Neut # (Auto) 17.92 10^3/uL (1.8-7.7) H 06/21/22: Lymph # (Auto) 1.5 10^3/uL (0.8-4.8) 06/21/22: [place] # (Auto) 0.7 10^3/uL (0.2-0.9) 06/21/22: Eos # (Auto) 0.0 10^3/uL (0.0-0.8) 06/21/22: Baso # (Auto) 0.1 10^3/uL (0.0-0.1) 06/21/22 Nucleated RBC % (auto) 0 % 06/21/22 Nucleated RBCs # 0.0 /100WBC 04/02/23 19:28 Specimen Type Arterial 06/21/22 20:55 Sample Site Radial, right 06/21/22 20:55 ABG pH 7.16 (7.35-7.45) L* 06/21/22 20:55 ABG pCO2 19.4 mmHg (35-45) L* 06/21/22 20:55 ABG pO2 113.0 mmHg (80.0-100.0) H 06/21/22 20:55 ABG HCO3 6.9 mmol/L (22-26) L 06/21/22 20:55 ABG Base Excess -19.8 mmol/L (-2.0-2.0) L 06/21/22 20:55 Nile Test Pos 06/21/22 20:55 Hematocrit 43.3 % (37-47) 06/21/22 20:55 O2 Delivery Device None 06/21/22 20:55 FiO2 21.0 % 06/21/22 20:55 Conveyor Maintenance Mechanic ID [place] 06/21/22 20:55 Sodium 134 mmol/L (136-145) L 06/21/22 19:28 Potassium 4.9 mmol/L (3.5-5.1) 06/21/22 19:28 Chloride 98 mmol/L (98-107) 06/21/22 19:28 Carbon Dioxide 10 mmol/L (22-29) L 06/21/22 19:28 Anion Gap 30.9 (5-19) H 06/21/22 19:28 BUN 18 mg/dL (6-20) 06/21/22 19:28 Creatinine 0.8 mg/dL (0.5-0.9) 06/21/22 19:28 GFR Calculation 81.2 mL/min (90-130) L 06/21/22 19:28 Glucose 507 mg/dL (65-115) H* 06/21/22 19:28 POC Glucose 489 mg/dL (70-110) H 06/21/22 20:20 Calculated Osmolality 303 mOsm/kg (285-295) H 06/21/22 19:28 Calcium 9.6 mg/dL (8.5-10.5) 06/21/22 19:28 Total Bilirubin 1.3 mg/dL (0.15-1.2) H 06/21/22 19:28 AST 76 U/L (0-32) H 06/21/22 19:28 ALT 167 U/L (0-33) H 06/21/22 19:28 Alkaline Phosphatase 87 U/L (35-105) 06/21/22 19:28 Total Protein 8.5 g/dL (6.6-8.7) 06/21/22 19:28 Albumin 4.4 g/dL (3.5-5.2) 06/21/22 19:28 Globulin 4.1 g/dL (1.3-4.6) 06/21/22 19:28 Lipase 12 U/L (13-60) L 06/21/22 19:28 HCG, Qual Negative (Negative) 06/21/22 19:28 Urine Color Yellow (Yellow) 06/21/22 19:20 Urine Appearance Clear (CLEAR) 06/21/22 19:20 Urine pH 5 (5-7) 06/21/22 19:20 Ur Specific [place] 1.020 (1.005-1.030) 06/21/22 19:20 Urine Protein Neg (Negative) 06/21/22 19:20 Urine Glucose (UA) 4+ (Normal) H 06/21/22 19:20 Urine Ketones 3+ (Negative) H 06/21/22 19:20 Urine Blood Neg (Negative) 06/21/22 19:20 Urine Nitrate Negative (Negative) 06/21/22 19:20 Urine Bilirubin Neg (Negative) 06/21/22 19:20 Urine Urobilinogen Norm mg/dL (Negative) 06/21/22 19:20 Ur Leukocyte Esterase Negative (Negative) 06/21/22 19:20 Serum Ketones Negative (Negative) 06/21/22 19:28 Discharge Plan Discharge Patient Disposition: Admitted As Inpatient Admit Provider: Letha Esparza Clinical Impression: DKA (diabetic ketoacidosis) Condition: Fair Coding Level of Care Code ED Sheep Boner for Chg Fwd Documented by User: Ricky Workman DO 04/02/23 21:59 HPI - Recheck/Abnormal Lab/Rx General: Chief Complaint: Recheck/Abnormal Lab/Rx Stated Complaint: high bs, n/v Time Seen by Provider: 06/21/22 19:00 PFSH ED PFSH: Medical History Hyperlipemia, mixed Hypothyroid Type 1 diabetes Surgical History No history of previous surgery Family History Mother Hypertension Grandmother Hypertension Denies family history of Diabetes CAD (coronary artery disease) Chronic kidney disease (CKD) Family history of premature coronary artery disease Cancer Stroke Social History Smoking and tobacco status: never smoked Alcohol intake: never Lives independently: Yes Household members: significant other Marital status: Single Number of children: 0 Current occupational status: employed Current occupation: [employer] Sexually active: Yes Course Vital Signs: Vital signs: Vital Signs Temperature 97.9 F 06/21/22 18:52 Pulse Rate 112 H 06/21/22 18:52 Respiratory Rate 16 06/21/22 18:52 Blood Pressure 130/77 06/21/22 18:52 Pulse Oximetry 99 06/21/22 18:52 Oxygen Delivery Me thod 06/21/22 18:52 MDM - Recheck/Abnormal Lab/Rx Medical Decision Making 37-year-old female comes in today for complaints of nausea vomiting since last night. Patient has a history of type 1 diabetes with prior episodes of DKA last episode being in April. On exam patient appears unwell. Patient is alert and responding appropriate questions. Patient is tachycardic. Abdomen soft nontender. Patient has some mild muscle tenderness in the low back. Blood glucose on triage was 450. Vital signs besides tachycardia are normal. Differential diagnosis DKA, dehydration, gastroenteritis, gastroparesis. CBC noted some leukocytosis at 20,000. CMP had a blood glucose of 507, sodium was 134, anion gap was 30, and carbon dioxide was 10. Liver enzymes were slightly elevated. Gallbladder ultrasound was unremarkable. Urinalysis had 4+ glucose and 3+ ketones. Serum ketones was negative. Patient was infused with 2 L of IV fluids. Patient was started on IV insulin drip after DC of insulin pump. Patient appeared to be in diabetic ketoacidosis. Reviewed exam with Dr. Workman who agreed to plan and need for admission. Patient reported understanding of care plan and agreed. Hospitalist will be consulted for admission plan. This patient was originally seen by SUSANNAH Kohlre.? I agree with his history, evaluation, and treatment. Spoke with the hospitalist, who will evaluate the patient in the ER. She will go to the ICU. Hospitalist requests bicarbonate drip which has been ordered. Lab Data 06/21/22 19:28 06/21/22 19:28 Radiology Impressions Gallbladder Ultrasound 06/21/22 20:21 IMPRESSION: No acute sonographic findings. Laboratory Results WBC 20.3 10^3/uL (4.0-10.0) H 06/21/22 19: RBC 5.20 10^6/uL (4.1-5.3) 06/21/22 19: Hgb 14.4 g/dL (11.5-15.3) 06/21/22 19:28 Hct 46.1 % (37.0-47.0) 06/21/22 19: MCV 88.7 fl (81-99) 06/21/22 19: MCH 27.7 pg (28.0-34.0) L 06/21/22 19:28 MCHC 31.2 g/dL (30.0-36.0) 06/21/22 19:28 RDW 12.9 % (12.1-15.1) 06/21/22 19:28 Plt Count 323 10^3/cmm (130-400) 06/21/22 19:28 MPV 9.5 fL (7.4-10.4) 06/21/22 19:28 Neut % (Auto) 88.2 % 06/21/22 19: Lymph % (Auto) 7.2 % 06/21/22 19:28 [place] % (Auto) 3.5 % 06/21/22 19:28 Eos % (Auto) 0.0 % 06/21/22 19: Baso % (Auto) 0.4 % 06/21/22: Neut # (Auto) 17.92 10^3/uL (1.8-7.7) H 06/21/22 19: Lymph # (Auto) 1.5 10^3/uL (0.8-4.8) 06/21/22 19: [place] # (Auto) 0.7 10^3/uL (0.2-0.9) 06/21/22 19: Eos # (Auto) 0.0 10^3/uL (0.0-0.8) 06/21/22: Baso # (Auto) 0.1 10^3/uL (0.0-0.1) 06/21/22: Nucleated RBC % (auto) 0 % 06/21/22: Nucleated RBCs # 0.0 /100WBC 06/21/22 19: Specimen Type Arterial 06/21/22 20:55 Sample Site Radial, right 06/21/22 20:55 ABG pH 7.16 (7.35-7.45) L* 06/21/22 20:55 ABG pCO2 19.4 mmHg (35-45) L* 06/21/22 20:55 ABG pO2 113.0 mmHg (80.0-100.0) H 06/21/22 20:55 ABG HCO3 6.9 mmol/L (22-26) L 06/21/22 20:55 ABG Base Excess -19.8 mmol/L (-2.0-2.0) L 06/21/22 20:55 Nile Test Pos 06/21/22 20:55 Hematocrit 43.3 % (37-47) 06/21/22 20:55 O2 Delivery Device None 06/21/22 20:55 FiO2 21.0 % 06/21/22 20:55 Conveyor Maintenance Mechanic ID [facility] 06/21/22 20:55 Sodium 134 mmol/L (136-145) L 06/21/22 19: Potassium 4.9 mmol/L (3.5-5.1) 06/21/22 19: Chloride 98 mmol/L (98-107) 06/21/22 19: Carbon Dioxide 10 mmol/L (22-29) L 06/21/22 19: Anion Gap 30.9 (5-19) H 06/21/22 19: BUN 18 mg/dL (6-20) 06/21/22 19:28 Creatinine 0.8 mg/dL (0.5-0.9) 06/21/22 19:28 GFR Calculation 81.2 mL/min (90-130) L 06/21/22 19:28 Glucose 507 mg/dL (65-115) H* 06/21/22 19:28 POC Glucose 489 mg/dL (70-110) H 06/21/22 20:20 Calculated Osmolality 303 mOsm/kg (285-295) H 06/21/22 19:28 Calcium 9.6 mg/dL (8.5-10.5) 06/21/22 19:28 Total Bilirubin 1.3 mg/dL (0.15-1.2) H 06/21/22 19:28 AST 76 U/L (0-32) H 06/21/22 19:28 ALT 167 U/L (0-33) H 06/21/22 19:28 Alkaline Phosphatase 87 U/L (35-105) 06/21/22 19:28 Total Protein 8.5 g/dL (6.6-8.7) 06/21/22 19:28 Albumin 4.4 g/dL (3.5-5.2) 06/21/22 19:28 Globulin 4.1 g/dL (1.3-4.6) 06/21/22 19:28 Lipase 12 U/L (13-60) L 06/21/22 19:28 HCG, Qual Negative (Negative) 06/21/22 19:28 Urine Color Yellow (Yellow) 06/21/22 19:20 Urine Appearance Clear (CLEAR) 06/21/22 19:20 Urine pH 5 (5-7) 06/21/22 19:20 Ur Specific [place] 1.020 (1.005-1.030) 06/21/22 19:20 Urine Protein Neg (Negative) 06/21/22 19:20 Urine Glucose (UA) 4+ (Normal) H 06/21/22 19:20 Urine Ketones 3+ (Negative) H 06/21/22 19:20 Urine Blood Neg (Negative) 06/21/22 19:20 Urine Nitrate Negative (Negative) 06/21/22 19:20 Urine Bilirubin Neg (Negative) 06/21/22 19:20 Urine Urobilinogen Norm mg/dL (Negative) 06/21/22 19:20 Ur Leukocyte Esterase Negative (Negative) 06/21/22 19:20 Serum Ketones Negative (Negative) 06/21/22 19:28 Critical Care Time Critical Care Time: Critical Care Time: Yes Total Critical Care Time: 35 Attestation: This case had a high probability of a clinically significant, sudden, or life threatening deterioration of this patient's condition which required my full and direct attention, intervention and personal management. Time excludes any procedures performed. Discharge Plan Discharge Patient Disposition: Admitted As Inpatient Admit Provider: Letha Esparza Clinical Impression: DKA (diabetic ketoacidosis) Condition: Fair Coding Level of Care Code ED Sheep Boner for Carolina Wilson
[2022-06-21] MEDS: sodium chloride 0.9% 1,000 ML 999 ML IV (19:39)
[2022-06-21] MEDS: ondansetron 2 mg/ML SDV 2 mL 4 MG IVP (19:40)
[2022-06-21 19:42] LABS: Basophils # 0.1 10^3/uL (0.0-0.1); Basophils % 0.4 %; Hematocrit 46.1 % (37.0-47.0); Hemoglobin 14.4 g/dL (11.5-15.3); Lymphocytes # 1.5 10^3/uL (0.8-4.8); Lymphocytes % 7.2 %; Mean Corpuscular HGB Conc 31.2 g/dL (30.0-36.0); Mean Corpuscular Hemoglobin 27.7 pg (28.0-34.0); Mean Corpuscular Volume 88.7 fl (81-99); Mean Platelet Volume 9.5 fL (7.4-10.4); Monocytes # 0.7 10^3/uL (0.2-0.9); Monocytes % 3.5 %; Neutrophils # 17.92 10^3/uL (1.8-7.7); Neutrophils % 88.2 %; Nucleated Red Blood Cells % 0 %; Platelet Count 323 10^3/cmm (130-400); Red Cell Distribution Width 12.9 % (12.1-15.1); White Blood Count 20.3 10^3/uL (4.0-10.0)
[2022-06-21 19:56] LABS: Ketone (Acetest) Serum Negative (Negative)
[2022-06-21 20:00] LABS: Alanine Aminotransferase 167 U/L (0-33); Albumin Level 4.4 g/dL (3.5-5.2); Alkaline Phosphatase 87 U/L (35-105); Anion Gap 30.9 (5-19); Aspartate Amino Transferase 76 U/L (0-32); Blood Urea Nitrogen 18 mg/dL (6-20); Calcium 9.6 mg/dL (8.5-10.5); Carbon Dioxide 10 mmol/L (22-29); Chloride 98 mmol/L (98-107); Globulin 4.1 g/dL (1.3-4.6); Glomerular Filtration Rate 81.2 mL/min (90-130); Lipase 12 U/L (13-60); Osmolality Calculated 303 mOsm/kg (285-295); Potassium 4.9 mmol/L (3.5-5.1); Sodium 134 mmol/L (136-145); Total Bilirubin 1.3 mg/dL (0.15-1.2); Total Protein 8.5 g/dL (6.6-8.7)
[2022-06-21 20:06] LABS: Glucose 507 mg/dL (65-115)
[2022-06-21 20:08] LABS: HCG, Serum Qual Negative (Negative)
[2022-06-21 20:12] LABS: Add Urine Microscopic? NO; Charge for UA Resulting for Rev
--- NOTE | 2022-06-21 20:21 | USR_ITS ---
PROCEDURE INFORMATION: Exam: US Abdomen, Limited; Right Upper Quadrant Exam date and time: 06/21/2022 8:32 PM Age: 37 years old Clinical indication: Abnormal findings; Abnormal lab test; Elevated liver enzymes; Vomiting TECHNIQUE: Imaging protocol: Real time ultrasound of the abdomen with image documentation. Limited exam focused on the right upper quadrant. COMPARISON: No relevant prior studies available. FINDINGS: Liver: Unremarkable. Gallbladder: No gallstones. No gallbladder wall thickening or pericholecystic fluid. Negative sonographic Kerr's sign, as per the performing boom tender. Biliary ducts: Normal. No stones. No dilation. Pancreas: Unremarkable as visualized. Right kidney: No mass. No definite stones. No hydronephrosis. US/US gall bladder [id number] IMPRESSION: No acute sonographic findings.
[2022-06-21 20:31] LABS: Glucose Point of Care 527 mg/dL (70-110)
[2022-06-21 20:31] LABS: Glucose Point of Care 489 mg/dL (70-110)
[2022-06-21 20:41] LABS: Glucose Urine UA 4+ (Normal); Protein Urine Neg (Negative); Urine Appearance Clear (CLEAR); Urine Color Yellow (Yellow); pH Urine 5 (5-7)
[2022-06-21 20:42] LABS: Bilirubin Urine Neg (Negative); Blood Urine Neg (Negative); Ketones Urine 3+ (Negative); Leukocyte Esterase Urine Negative (Negative); Nitrate Urine Negative (Negative); Urobilinogen Urine Norm (Negative)
[2022-06-21 21:07] LABS: Arterial Blood Gas Hematocrit 43.3 % (37-47); Base Excess ABG -19.8 mmol/L (-2.0-2.0); Blood Gas Allen Test Pos; Blood Gas Sample Site Radial, right; Blood Gas Sample Type Arterial; HCO3 ABG 6.9 mmol/L (22-26)
[2022-06-21 21:08] LABS: ABG PCO2 19.4 mmHg (35-45); ABG PH Result 7.16 (7.35-7.45)
[2022-06-21] MEDS: fentaNYL 50 mcg/mL INJ 2mL IVP (21:16)
[2022-06-21] MEDS: insulin regular-human 250 UNIT in sodium chloride 0.9% 250 ML 12.8 UNIT IV (21:25)
--- NOTE | 2022-06-21 22:12 | ECG_ITS ---
[facility] Test Date: 2022-06-21 Pat Name: Vania Yu Department: Room: [facility] Gender: Female Nitrating Acid Mixer: : 1985 Requested By: Letha Esparza Order Number: [id number] Reji MD: Cholo Chavez M.D. Measurements Intervals [place] Rate: 137 P: 154 [place]: 133 QRS: 121 QRSD: 88 T: -10 QT: 304 QTc: 460 Interpretive Statements SINUS TACHYCARDIA ARM LEADS REVERSED [INVERTED P AND QRS IN I] No previous ECG available for comparison Electronically Signed On 06-22-2022 13:07:18 CDT by Cholo Chavez M.D. [email or web address], [email or web address] behavioral [email or web address] [id number]
--- NOTE | 2022-06-21 22:18 | PM.HP ---
Providers/Chief Complaint Admitting Physician: Letha Esparza MD Primary Care Provider: Shruthi Hernandes MD Chief Complaint: high bs, n/v History of Present Illness Vania Yu is a 37 year old female past medical history of hypothyroidism, hyperlipidemia, type 1 diabetes mellitus on insulin by presents to the hospital today with nausea vomiting that started last night after she ate [employer]. She says she has had diabetes since childhood. She is on an insulin pump. She does not note that there is any issue with the pump at this time. She follows with endocrinology at [facility]. She states her blood glucose has been high. She had DKA multiple times in the past. Otherwise denies shortness of breath, chest pain, abdominal pain or any other symptoms at this time. ED course:CMP had a blood glucose of 507, sodium was 134, anion gap was 30, and carbon dioxide was 10. Liver enzymes were slightly elevated. Gallbladder ultrasound was unremarkable. Urinalysis had 4+ glucose and 3+ ketones. Serum ketones was negative. Patient was infused with 2 L of IV fluids. Patient was started on IV insulin drip after DC of insulin pump. 130/77, 16, 112, 97.9 Medications/Allergies Home Medications Medication Instructions Recorded Confirmed Last Taken Type glucagon HCl 1 mg solution for 1 mg SUBCUT Q20M PRN hypoglycemia 12/30/21 04/28/22 Unknown Rx injection (Glucagon (HCl) #1 ea Emergency Kit) insulin aspart U-100 100 unit/mL 100 unit SUBCUT DAILY #90 mL 12/30/21 04/28/22 Unknown Rx subcutaneous solution (Novolog U-100 Insulin aspart) levothyroxine 50 mcg tablet 50 mcg PO DAILY #90 tabs 12/30/21 04/28/22 Unknown Rx norethindrone 0.5 mg-ethinyl See Rx Instructions .Route 06/01/22 Unknown Rx estradiol 35 mcg tablet (Nortrel) .COMPLEX #84 tabs Allergies Allergy/AdvReac Type Severity Reaction Status Date / Time No Known Allergies Allergy Verified 06/21/22 18:56 PFSH Acute PFSH: Medical History Hyperlipemia, mixed Hypothyroid Type 1 diabetes Surgical History No history of previous surgery Family History Mother Hypertension Grandmother Hypertension Denies family history of Diabetes CAD (coronary artery disease) Chronic kidney disease (CKD) Family history of premature coronary artery disease Cancer Stroke Social History Smoking and tobacco status: never smoked Alcohol intake: never Lives independently: Yes Household members: significant other Marital status: Single Number of children: 0 Current occupational status: employed 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 Sexually active: Yes Vitals/I&O/Wt Last Vital Signs Temp 97.9 F 06/21/22 18:52 Pulse 112 H 06/21/22 18:52 Resp 16 06/21/22 18:52 BP 130/77 06/21/22 18:52 Pulse Ox 99 06/21/22 18:52 O2 Del Method 06/21/22 18:52 06/21/22 06/21/22 06/21/22 06:59 14:59 22:59 Intake Total 800 / 800 Balance 800 / 800 Weight last 48 hrs Weight 63.503 kg Physical Exam Narrative: General: Alert oriented x3, patient seen laying in bed HEENT: Normocephalic, atraumatic, EOMI, breathing comfortably Cardio: Regular rhythm, sinus tachy, normal S1-S2 Respiratory: Good bilateral air entry, no wheezes no rhonchi appreciated GI: Abdomen soft, nontender, nondistended, bowel sounds + Behavior: Appropriate and cooperative Extremities: no edema, no cyanosis Data 06/21/22 19:28 06/21/22 19:28 A&P Assessment and plan (1) DKA (diabetic ketoacidosis): Qualifiers: Diabetes mellitus complication detail: without coma Diabetes mellitus type: type 1 Qualified Code(s): E10.10 - Type 1 diabetes mellitus with ketoacidosis without coma (2) Hyperlipemia, mixed: (3) Hypothyroid: (4) Type 1 diabetes: (5) High anion gap metabolic acidosis: (6) Elevated liver enzymes: Plan #DKA #Hyperlipidemia #Hypothyroidism #High anion gap metabolic acidosis secondary to diabetic ketoacidosis #Leukocytosis #Liver enzymes slightly elevated -Start insulin drip - BMP every 4 hours -Start bicarb drip -Check ABG in a.m. ? CBC magnesium phosphorus ? Check troponin series ? Blood culture, urine culture. -Patient had [employer] last night which she believes probably caused her DKA. She says her insulin pump is working okay. Her insulin to carb ratio is 1 unit for every 4 g of carbs. However I am not sure if this is accurate. ? Encouraged to follow-up with endocrinology as an outpatient after discharge ? Continue with levothyroxine 50 daily ? Check TSH ? Leukocytosis probably reactive. Will order underlying infection however. ? She has no other symptoms - Nausea vomiting with suspicion for infectious process is low at this time. I will not start antibiotics. Will check procalcitonin. - Normal saline with 20 of K at 150 cc/h ? We will add dextrose to fluids once sugar below 250. ? Check hepatitis profile ? Gallbladder ultrasound negative for acute process Full code SCDs, heparin SQ twice daily Attestations Medical Necessity Statement*: Will cross > 2 midnight stay for management of DKA Coding Level of Care Code Critical Care >/= 30 minutes Critical care time (in minutes): 45 The high probability of a clinically significant, sudden or life threatening deterioration, as referenced in this documentation, required my full and direct attention, intervention and personal management. The critical care time shown is in addition to time spent performing any reported separately billable procedures and includes the following: [x] Data and vital sign review and interpretation [x] Patient assessment, examination and intervention [x] Medication orders and management [x] Patient/Family updates as able [x] Care Coordination and Documentation. Other Coding Information Focused coding review requested I spent 45 minutes on this encounter before, during and after the visit, examining the patient, reviewing labs, writing orders and documenting the note and discussing with nursing staff taking care of the patient. The high probability of a clinically significant, sudden or life threatening deterioration of the patient's [] system(s) required my full and direct attention, intervention and personal management. The critical care time is as shown. This time is in addition to time spent performing any reported procedures but includes the following: [x] Data and vital sign review and interpretation [x] Patient assessment, examination and intervention [x] Documentation [x] Medication orders and management Critical Care Time (min): 45 Diagnoses DKA (diabetic ketoacidosis) E10.10 Diabetes mellitus complication detail: without coma Diabetes mellitus type: type 1 Hyperlipemia, mixed E78.2 Hypothyroid E03.9 Type 1 diabetes E10.9 High anion gap metabolic acidosis E87.29 Elevated liver enzymes R74.8
[2022-06-21 22:27] LABS: Glucose Point of Care 517 mg/dL (70-110)
[2022-06-21 23:00] LABS: Glucose Point of Care 482 mg/dL (70-110)
[2022-06-21 23:06] LABS: Troponin(5th) Baseline 7 ng/L (0-10)
[2022-06-21] MEDS: sodium bicarbonate 150 MEQ in dextrose 5% 1,000 ML 100 MEQ IV (23:23)
[2022-06-21] MEDS: sodium chlor 0.9% + KCl 20 mEq 20 MEQ/1,000 ML BAG 150 MEQ IV (23:29)
[2022-06-21] MEDS: sodium bicarbonate 150 MEQ in sodium chloride 0.45% 1,000 ML 100 MEQ IV (23:43)
[2022-06-22] VITALS (62 sets, daily range): BP systolic 82–174; BP diastolic 43–87; PULSE 93–144; RESP 15–32; TEMP 36.7–37.2; O2SAT 95–100
[2022-06-22 00:03] LABS: Estmated Average Glucose 177
[2022-06-22 00:03] LABS: Glucose Point of Care 379 mg/dL (70-110)
[2022-06-22 00:11] LABS: Blood Urea Nitrogen 18 mg/dL (6-20); Chloride 101 mmol/L (98-107); Glomerular Filtration Rate 70.8 mL/min (90-130); Glucose 443 mg/dL (65-115); Osmolality Calculated 299 mOsm/kg (285-295); Sodium 134 mmol/L (136-145); Thyroid Stimulating Hormone 0.97 uIU/mL (0.27-4.20)
--- NOTE | 2022-06-22 00:11 | ECG_ITS ---
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 Measurements Intervals [place] Rate: 126 P: 66 DC: 116 QRS: 44 QRSD: 91 T: 4 QT: 335 QTc: 486 Interpretive Statements SINUS TACHYCARDIA WITH SHORT DC INTERVAL POSSIBLE RIGHT VENTRICULAR CONDUCTION DELAY [RSR (QR) IN V1/V2] NONSPECIFIC T-WAVE ABNORMALITY No previous ECG available for comparison Electronically Signed On 06-22-2022 13:08:38 CDT by Cholo Chavez M.D. [id number]
[2022-06-22 00:22] LABS: Anion Gap 34.9 (5-19); Potassium 4.9 mmol/L (3.5-5.1)
[2022-06-22 00:30] LABS: Carbon Dioxide 3 mmol/L (22-29)
[2022-06-22 00:36] LABS: Hemoglobin A1C 7.8 % (4.0-6.0)
[2022-06-22 01:12] LABS: Glucose Point of Care 301 mg/dL (70-110)
[2022-06-22] MEDS: morphine 4 mg/mL SDV 1 mL 1 MG IVP (01:39)
[2022-06-22] MEDS: sodium bicarbonate 8.4% 1 mEq/mL 50mL Syr 100 MEQ IVP (01:52)
[2022-06-22] MEDS: sodium chloride 0.9% 1,000 ML 999 ML IV (02:00)
[2022-06-22 02:07] LABS: Basophils % 0.1 %; Hematocrit 35.7 % (37.0-47.0); Hemoglobin 11.8 g/dL (11.5-15.3); Lymphocytes # 2.6 10^3/uL (0.8-4.8); Lymphocytes % 12.1 %; Mean Corpuscular HGB Conc 33.1 g/dL (30.0-36.0); Mean Corpuscular Hemoglobin 28.3 pg (28.0-34.0); Mean Corpuscular Volume 85.6 fl (81-99); Mean Platelet Volume 9.1 fL (7.4-10.4); Monocytes # 1.8 10^3/uL (0.2-0.9); Monocytes % 8.4 %; Neutrophils # 16.63 10^3/uL (1.8-7.7); Neutrophils % 78.7 %; Nucleated Red Blood Cells % 0 %; Platelet Count 265 10^3/cmm (130-400); Red Blood Count 4.17 10^6/uL (4.1-5.3); Red Cell Distribution Width 13.1 % (12.1-15.1); White Blood Count 21.1 10^3/uL (4.0-10.0)
[2022-06-22 02:20] LABS: Alanine Aminotransferase 121 U/L (0-33); Albumin Level 3.4 g/dL (3.5-5.2); Alkaline Phosphatase 62 U/L (35-105); Anion Gap 17.5 (5-19); Aspartate Amino Transferase 39 U/L (0-32); Blood Urea Nitrogen 15 mg/dL (6-20); Calcium 8.3 mg/dL (8.5-10.5); Carbon Dioxide 16 mmol/L (22-29); Chloride 108 mmol/L (98-107); Globulin 3.1 g/dL (1.3-4.6); Glomerular Filtration Rate 81.2 mL/min (90-130); Glucose 215 mg/dL (65-115); Magnesium 1.9 mg/dL (1.7-2.3); Osmolality Calculated 293 mOsm/kg (285-295); Potassium 3.5 mmol/L (3.5-5.1); Sodium 138 mmol/L (136-145); Total Bilirubin 0.6 mg/dL (0.15-1.2); Total Protein 6.5 g/dL (6.6-8.7)
[2022-06-22 02:22] LABS: HIV 1 & 2 Antibody Non-Reactive (Non-Reactiv); HIV 1 & 2 Antigen Non-Reactive (Non-Reactiv)
[2022-06-22 02:22] LABS: Glucose Point of Care 207 mg/dL (70-110)
[2022-06-22 03:04] LABS: Hepatitis A Antibody IgM Non-Reactive (Nonreactive); Hepatitis B Core AB, Total Non-Reactive (Nonreactive); Hepatitis B Surface AB 3.5 (11.5-1000); Hepatitis C Virus Antibody Non-Reactive (Nonreactive)
[2022-06-22 03:08] LABS: Glucose Point of Care 194 mg/dL (70-110)
[2022-06-22] MEDS: potassium chloride premix 100 ML 25 MEQ IV (03:16)
[2022-06-22 03:17] LABS: Hepatitis B Surface Antigen Non-Reactive (Nonreactive)
[2022-06-22] MEDS: D5-NS 0.45% + KCL 20 mEq 20 MEQ/1,000 ML BAG 125 MEQ IV (03:22)
[2022-06-22 03:23] LABS: ABG PCO2 30.9 mmHg (35-45); Arterial Blood Gas Hematocrit 36.5 % (37-47); Base Excess ABG -4.8 mmol/L (-2.0-2.0); Blood Gas Allen Test Pos; Blood Gas Sample Site Radial, right; Blood Gas Sample Type Arterial; HCO3 ABG 19.1 mmol/L (22-26); Oxygen Device ROOM AIR
[2022-06-22 03:34] LABS: Procalcitonin 1.13 ng/mL (0-0.5)
[2022-06-22 04:06] LABS: Glucose Point of Care 172 mg/dL (70-110)
[2022-06-22 05:13] LABS: Glucose Point of Care 178 mg/dL (70-110)
[2022-06-22 06:02] LABS: Glucose Point of Care 174 mg/dL (70-110)
--- NOTE | 2022-06-22 08:09 | ECG_ITS ---
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 Measurements Intervals [place] Rate: 96 P: 62 FL: 147 QRS: 50 QRSD: 92 T: 32 QT: 361 QTc: 458 Interpretive Statements SINUS RHYTHM POSSIBLE RIGHT VENTRICULAR CONDUCTION DELAY [RSR (QR) IN V1/V2] Compared to ECG 06/22/2022 00:02:21 Sinus tachycardia no longer present Short FL interval no longer present T-wave abnormality no longer present Electronically Signed On 06-22-2022 13:08:30 CDT by Cholo Chavez M.D. [id number]
[2022-06-22 08:25] LABS: Anion Gap 8.7 (5-19); Blood Urea Nitrogen 13 mg/dL (6-20); Calcium 7.6 mg/dL (8.5-10.5); Carbon Dioxide 22 mmol/L (22-29); Chloride 106 mmol/L (98-107); Glomerular Filtration Rate 113.1 mL/min (90-130); Glucose 172 mg/dL (65-115); Osmolality Calculated 280 mOsm/kg (285-295); Potassium 3.7 mmol/L (3.5-5.1); Sodium 133 mmol/L (136-145)
[2022-06-22] MEDS: levothyroxine 50 mcg Tablet PO (08:29)
[2022-06-22 09:17] LABS: Glucose Point of Care 124 mg/dL (70-110)
[2022-06-22 09:30] LABS: Glucose Point of Care 162 mg/dL (70-110)
[2022-06-22 09:30] LABS: Glucose Point of Care 144 mg/dL (70-110)
--- NOTE | 2022-06-22 09:43 | XR_ITS ---
WS: [id number] XR chest 1V portable [id number] REASON FOR EXAM: leukocytosis FINDINGS: Thoracic aorta and mediastinum are within normal limits. The heart is enlarged. Calcified granulomatous disease bilaterally. Minimal areas of presumed atelectasis in both lung bases with no other significant lung opacities. No findings of pleural effusion. Bony thorax is intact without significant focal abnormality. XR/XR chest 1V portable [id number] IMPRESSION: Minimal atelectatic changes with no other significant pulmonary abnormality.
--- NOTE | 2022-06-22 09:48 | PM.PN ---
Subjective Subjective: Overnight labs and H&P have been reviewed. Anion gap now closed. She has not had any episodes of vomiting this morning. No complaints of abdominal pain nausea or diarrhea. No complains of fever at home. No recent URI symptoms or coughing. Medications: Reviewed: Yes Vitals/I&O/Wt Last Vital Signs Temp 98.2 F 06/22/22 07:00 Pulse 101 H 06/22/22 08:30 Resp 23 H 06/22/22 08:30 BP 129/60 06/22/22 08:30 Pulse Ox 99 06/22/22 08:30 O2 Del Method 06/21/22 23:03 06/21/22 06/22/22 06/22/22 22:59 06:59 14:59 Intake Total 812.373 / 899.812 8801.452 / 2535.825 Balance 812.373 / 044.147 9783.452 / 2535.825 Weight last 48 hrs Weight 63.957 kg Weight 63.957 kg Weight 63.503 kg Physical Exam Narrative: General: No acute distress, AO x3 HEENT: PERRLA, pupils bilaterally equal and reactive, pallors not present Chest: Normal vesicular breath sounds, no added sounds, equal good air entry bilaterally CVS: S1-S2 regular, no murmurs, no tachycardia, no gallops, no rubs Abdomen: Soft, nontender, no organomegaly, bowel sounds present Neuro: No focal deficits, no facial deformity, AO x3, power 5/5 in all limbs Extremities: Central line right femoral, placed due to lack of IV access Data 06/22/22 01:56 06/22/22 07:48 Micro: Microbiology 06/21/22 22:39 Blood Culture - Preliminary Blood SPECIMEN COLLECTED 06/21/22 22:30 Blood Culture - Preliminary Blood SPECIMEN COLLECTED A&P Assessment and plan (1) DKA (diabetic ketoacidosis): Patient presented with DKA, anion gap of 34 on admission, now corrected to 8.7 this morning. pH normalized from 7.16-7.4 this morning. With correction of anion gap and ketoacidosis, will discontinue insulin drip with overlap sliding scale. Start insulin sliding scale. We will check 24-hour insulin requirements and based on insulin requirements will see if any adjustments need to be made to her insulin pump. Symptomatically she feels better. No more nausea vomiting No abdominal pain or diarrhea currently. Check next CMP at 4 PM. Qualifiers: Diabetes mellitus complication detail: without coma Diabetes mellitus type: type 1 Qualified Code(s): E10.10 - Type 1 diabetes mellitus with ketoacidosis without coma (2) Hyperlipemia, mixed: (3) Hypothyroid: (4) Type 1 diabetes: As above HbA1c 7.8. (5) High anion gap metabolic acidosis: (6) Elevated liver enzymes: Suspect that this is related to dehydration versus fatty liver. Gallbladder ultrasound performed yesterday was unremarkable. Hepatitis serology negative. Plan Leukocytosis: No localizing signs or symptoms of infection at this time. Blood cultures have been taken, currently negative. Patient denies any history of IV drug use. Gallbladder ultrasound taken yesterday unremarkable. No evidence of pancreatitis on the ultrasound. No abdominal pain nausea or vomiting currently. UA is unremarkable. Will check chest x-ray. Monitor off antibiotics for now. Hemodynamically she is stable and feeling improved. DVT prophylaxis: Lovenox Full code Attestations Medical Necessity Statement*: DKA, carbohydrate consistent diet, switch to sliding scale insulin, next CMP at 4 PM plan to move out of ICU if anion gap remains closed., Coding Level of Care Code Acute Code for Chg Fwd High MDM includes number and complexity of problems actively addressed during encounter, amount and/or complexity of data reviewed/ordered and described risk of complication, morbidity or mortality of management as documented Diagnoses DKA (diabetic ketoacidosis) E10.10 Diabetes mellitus complication detail: without coma Diabetes mellitus type: type 1 Hyperlipemia, mixed E78.2 Hypothyroid E03.9 Type 1 diabetes E10.9 High anion gap metabolic acidosis E87.29 Elevated liver enzymes R74.8
[2022-06-22] MEDS: sodium chloride 0.9% 1,000 ML 75 ML IV ×2 (10:11→22:07)
[2022-06-22] MEDS: enoxaparin 40 mg/0.4 mL Syringe SUBCUT (10:11)
[2022-06-22 10:21] LABS: Amphetamines Screen Urine Negative (Negative); Barbiturates Screen Urine Negative (Negative); Benzodiazepines Screen Urine Negative (Negative); Cocaine Screen Urine Negative (Negative); Opiate Screen Urine Negative (Negative); PCP Screen Urine Negative (Negative); THC Screen Urine Negative (Negative)
[2022-06-22 11:30] LABS: Glucose Point of Care 71 mg/dL (70-110)
[2022-06-22 16:27] LABS: Alanine Aminotransferase 93 U/L (0-33); Albumin Level 3.2 g/dL (3.5-5.2); Alkaline Phosphatase 56 U/L (35-105); Anion Gap 17.3 (5-19); Aspartate Amino Transferase 31 U/L (0-32); Blood Urea Nitrogen 14 mg/dL (6-20); Calcium 7.8 mg/dL (8.5-10.5); Carbon Dioxide 16 mmol/L (22-29); Chloride 103 mmol/L (98-107); Globulin 2.3 g/dL (1.3-4.6); Glomerular Filtration Rate 113.1 mL/min (90-130); Glucose 353 mg/dL (65-115); Osmolality Calculated 289 mOsm/kg (285-295); Potassium 4.3 mmol/L (3.5-5.1); Sodium 132 mmol/L (136-145); Total Protein 5.5 g/dL (6.6-8.7)
[2022-06-22] MEDS: insulin lispro 100 unit/1 mL SUBCUT ×2 (17:30→20:07)
[2022-06-22 17:39] LABS: Glucose Point of Care 401 mg/dL (70-110)
[2022-06-22 19:52] LABS: Glucose Point of Care 271 mg/dL (70-110)
--- NOTE | 2022-06-22 22:11 | PC.NURSE ---
Fluids found to be running at 125mL/hr at shift assessment. Titrated to 75mL/hr as ordered.
[2022-06-23] VITALS (38 sets, daily range): BP systolic 138–176; BP diastolic 65–92; PULSE 88–117; RESP 14–30; TEMP 36.9–37.6; O2SAT 94–99; BMI 27.5
--- NOTE | 2022-06-23 05:00 | PC.NURSE ---
Blood Pressure Dr. Ribeiro notified of increased blood pressures. No new orders received.
[2022-06-23 07:32] LABS: Glucose Point of Care 295 mg/dL (70-110)
[2022-06-23] MEDS: insulin lispro 100 unit/1 mL SUBCUT ×3 (08:10→17:21)
[2022-06-23] MEDS: levothyroxine 50 mcg Tablet PO (08:10)
[2022-06-23 09:46] LABS: Basophils # 0.1 10^3/uL (0.0-0.1); Basophils % 0.4 %; Eosinophils # 0.1 10^3/uL (0.0-0.8); Eosinophils % 0.4 %; Hematocrit 37.2 % (37.0-47.0); Hemoglobin 11.8 g/dL (11.5-15.3); Lymphocytes # 2.5 10^3/uL (0.8-4.8); Lymphocytes % 15.9 %; Mean Corpuscular HGB Conc 31.7 g/dL (30.0-36.0); Mean Corpuscular Hemoglobin 27.8 pg (28.0-34.0); Mean Corpuscular Volume 87.7 fl (81-99); Mean Platelet Volume 9.2 fL (7.4-10.4); Monocytes # 0.8 10^3/uL (0.2-0.9); Monocytes % 4.9 %; Neutrophils # 12.37 10^3/uL (1.8-7.7); Nucleated Red Blood Cells % 0 %; Platelet Count 209 10^3/cmm (130-400); Red Blood Count 4.24 10^6/uL (4.1-5.3); Red Cell Distribution Width 13.8 % (12.1-15.1); White Blood Count 15.9 10^3/uL (4.0-10.0)
[2022-06-23 10:06] LABS: Alanine Aminotransferase 80 U/L (0-33); Albumin Level 3.4 g/dL (3.5-5.2); Alkaline Phosphatase 69 U/L (35-105); Anion Gap 20.4 (5-19); Aspartate Amino Transferase 29 U/L (0-32); Blood Urea Nitrogen 10 mg/dL (6-20); Calcium 7.6 mg/dL (8.5-10.5); Carbon Dioxide 14 mmol/L (22-29); Chloride 104 mmol/L (98-107); Globulin 2.8 g/dL (1.3-4.6); Glomerular Filtration Rate 113.1 mL/min (90-130); Glucose 267 mg/dL (65-115); Osmolality Calculated 288 mOsm/kg (285-295); Potassium 3.4 mmol/L (3.5-5.1); Sodium 135 mmol/L (136-145); Total Bilirubin 0.9 mg/dL (0.15-1.2); Total Protein 6.2 g/dL (6.6-8.7)
[2022-06-23 11:27] LABS: Glucose Point of Care 186 mg/dL (70-110)
[2022-06-23] MEDS: sodium chloride 0.9% 1,000 ML 75 ML IV (11:42)
[2022-06-23 13:05] LABS: Glucose Point of Care 177 mg/dL (70-110)
[2022-06-23] MEDS: potassium chloride ER 20 mEq Tablet 60 MEQ PO (13:16)
[2022-06-23] MEDS: insulin regular-human 5 UNIT in SYRINGE 1 EACH 1 UNIT IVP (13:25)
[2022-06-23 14:31] LABS: Glucose Point of Care 173 mg/dL (70-110)
[2022-06-23 15:47] LABS: Alanine Aminotransferase 74 U/L (0-33); Albumin Level 3.5 g/dL (3.5-5.2); Alkaline Phosphatase 64 U/L (35-105); Anion Gap 15.1 (5-19); Aspartate Amino Transferase 26 U/L (0-32); Blood Urea Nitrogen 7 mg/dL (6-20); Calcium 7.8 mg/dL (8.5-10.5); Carbon Dioxide 20 mmol/L (22-29); Chloride 108 mmol/L (98-107); Globulin 2.7 g/dL (1.3-4.6); Glomerular Filtration Rate 180.6 mL/min (90-130); Glucose 147 mg/dL (65-115); Osmolality Calculated 289 mOsm/kg (285-295); Potassium 4.1 mmol/L (3.5-5.1); Sodium 139 mmol/L (136-145); Total Bilirubin 0.8 mg/dL (0.15-1.2); Total Protein 6.2 g/dL (6.6-8.7)
--- NOTE | 2022-06-23 16:43 | PM.PN ---
Vitals/I&O/Wt Last Vital Signs Temp 98.6 F 06/23/22 12:30 Pulse 97 06/23/22 14:42 Resp 25 H 06/23/22 14:00 BP 161/89 06/23/22 14:00 Pulse Ox 99 06/23/22 14:00 O2 Del Method 06/23/22 05:55 06/23/22 06/23/22 06/23/22 06:59 14:59 22:59 Intake Total 1000.05 / 1000.05 Output Total 250 / 250 Balance 750.05 / 750.05 Weight last 48 hrs Weight 63.957 kg Weight 63.957 kg Weight 63.957 kg Weight 63.503 kg Data 06/23/22 09:33 06/23/22 14:43 Micro: Microbiology 06/21/22 22:39 Blood Culture - Preliminary Blood NEGATIVE TO DATE 06/21/22 22:30 Blood Culture - Preliminary Blood NEGATIVE TO DATE Coding
--- NOTE | 2022-06-23 16:58 | P.DS_ITS ---
Discharge Providers Date of Admission: 06/21/22 22:56 Date of Discharge: June 23, 2022 Attending Provider at Admission: Letha Esparza MD Attending Provider at Discharge: Bessie Alonso MD Primary Care Provider: Shruthi Hernandes MD Diagnoses at Discharge Discharge Diagnosis (1) DKA (diabetic ketoacidosis): Status: Acute Qualifiers: Diabetes mellitus complication detail: without coma Diabetes mellitus type: type 1 Qualified Code(s): E10.10 - Type 1 diabetes mellitus with ketoacidosis without coma (2) Hyperlipemia, mixed: Status: Chronic (3) Hypothyroid: Status: Chronic (4) Type 1 diabetes: Status: Chronic (5) High anion gap metabolic acidosis: Status: Acute (6) Elevated liver enzymes: Status: Acute Reason for Visit Reason for Visit: high bs, n/v Brief History: Vania Yu is a 37 year old female past medical history of hypothyroidism, hyperlipidemia, type 1 diabetes mellitus on insulin by presents to the hospital today with nausea vomiting which started a few hours after she ate food at [facility]. She is typically on an insulin pump and states that this has been functioning normally. She typically follows with endocrinology at [facility]. She states that she gave herself extra bolus for the meal but does not seem to have worked. Upon admission she was found to have blood glucose of 507, sodium was 134, anion gap was 30, and carbon dioxide was 10.? Liver enzymes were slightly elevated.? Gallbladder ultrasound was unremarkable.? Urinalysis had 4+ glucose and 3+ ketones.? Serum ketones was negative.? Patient was infused with 2 L of IV fluids.? Patient was started on IV insulin drip after DC of insulin pump. Her DKA resolved over the next day, anion gap closed. Patient was switched over to high-dose insulin sliding scale. Her anion gap remains closed today, she is feeling much better and is planned to be discharged. Patient was offered to be switched to Lantus and Premeal insulin via pens until follow-up with her radiological technician as we do not know if her insulin pump is working correctly. Her 24-hour insulin requirement dose calculated at 49 units over the last 24 hours. I do not know how much she currently gets via her insulin pump. Patient is unable to tell me this. Patient declined to be switched over to the Lantus and Premeal and is confident that her pump is working correctly and wants to manage it at home. She is encouraged to call her radiological technician office tomorrow and follow-up with primary care provider in the next 4 to 7 days to ensure that her fingersticks are well controlled at home. During the hospital stay she was found to also have labile blood pressures ranging between 90 systolic upon presentation to 163 on occasions. Encouraged to maintain a blood pressure chart at home and take her to the primary care provider follow-up as she may need to be started on antihypertensives. She had leukocytosis upon presentation, likely related to dehydration from DKA. No gross infectious source was found upon evaluation. Chest x-ray was without infiltrates. UA unremarkable. Gallbladder ultrasound showed normal gallbladder and biliary system and pancreas. She remained afebrile during the course of admission. Leukocytosis improved from 20-15 with hydration. Urine tox screen was negative. She is being discharged today in improved condition. She is eager to return home. Physical Exam Narrative: General: No acute distress, AO x3 HEENT: PERRLA, pupils bilaterally equal and reactive, pallors not present Chest: Normal vesicular breath sounds, no added sounds, equal good air entry bilaterally CVS: S1-S2 regular, no murmurs, no tachycardia, no gallops, no rubs Abdomen: Soft, nontender, no organomegaly, bowel sounds present Neuro: No focal deficits, no facial deformity, AO x3, power 5/5 in all limbs Discharge Data Studies Completed and Pending Completed Studies During Hospitalization Category Date Time Status CXRP [XR chest 1V portable [id number]] Routine Exams 06/22/22 09:43 Completed US gall bladder [id number] Stat Ultrasound 06/21/22 20:21 Completed Pending at discharge Category Date Time Status Blood Culture Stat Lab 06/21/22 22:39 Results Respiratory Panel 2 Routine Lab 06/23/22 13:35 Received Radiology Impressions Gallbladder Ultrasound 06/21/22 20:21 IMPRESSION: No acute sonographic findings. Chest X-Ray 06/22/22 09:43 IMPRESSION: Minimal atelectatic changes with no other significant pulmonary abnormality. Laboratory Results WBC 15.9 10^3/uL (4.0-10.0) H 06/23/22 09:33 RBC 4.24 10^6/uL (4.1-5.3) 06/23/22 09:33 Hgb 11.8 g/dL (11.5-15.3) 06/23/22 09: Hct 37.2 % (37.0-47.0) 06/23/22 09: MCV 87.7 fl (81-99) 06/23/22 09:33 MCH 27.8 pg (28.0-34.0) L 06/23/22 09: MCHC 31.7 g/dL (30.0-36.0) 06/23/22 09: RDW 13.8 % (12.1-15.1) 06/23/22 09: Plt Count 209 10^3/cmm (130-400) 06/23/22 09: MPV 9.2 fL (7.4-10.4) 06/23/22 09: Neut % (Auto) 78.0 % 06/23/22 09: Lymph % (Auto) 15.9 % 06/23/22 09: [place] % (Auto) 4.9 % 06/23/22 09: Eos % (Auto) 0.4 % 06/23/22 09:33 Baso % (Auto) 0.4 % 06/23/22 09: Neut # (Auto) 12.37 10^3/uL (1.8-7.7) H 06/23/22 09: Lymph # (Auto) 2.5 10^3/uL (0.8-4.8) 06/23/22 09: [place] # (Auto) 0.8 10^3/uL (0.2-0.9) 06/23/22 09: Eos # (Auto) 0.1 10^3/uL (0.0-0.8) 06/23/22 09: Baso # (Auto) 0.1 10^3/uL (0.0-0.1) 06/23/22 09: Nucleated RBC % (auto) 0 % 06/23/22 09: Nucleated RBCs # 0.0 /100WBC 06/23/22 09:33 Specimen Type Arterial 06/22/22 04:00 Sample Site Radial, right 06/22/22 04:00 ABG pH 7.40 (7.35-7.45) 06/22/22 04:00 ABG pCO2 30.9 mmHg (35-45) L 06/22/22 04:00 ABG pO2 96.0 mmHg (80.0-100.0) 06/22/22 04:00 ABG HCO3 19.1 mmol/L (22-26) L 06/22/22 04:00 ABG Base Excess -4.8 mmol/L (-2.0-2.0) L 06/22/22 04:00 Nile Test Pos 06/22/22 04:00 Hematocrit 36.5 % (37-47) L 06/22/22 04:00 O2 Delivery Device Room air 06/22/22 04:00 FiO2 21.0 % 06/21/22 20:55 Stitch Bonding Machine Operator ID [email or web address] 06/22/22 04:00 Sodium 139 mmol/L (136-145) 06/23/22 14:43 Potassium 4.1 mmol/L (3.5-5.1) 06/23/22 14:43 Chloride 108 mmol/L (98-107) H 06/23/22 14:43 Carbon Dioxide 20 mmol/L (22-29) L 06/23/22 14:43 Anion Gap 15.1 (5-19) 06/23/22 14:43 BUN 7 mg/dL (6-20) 06/23/22 14:43 Creatinine 0.4 mg/dL (0.5-0.9) L 06/23/22 14:43 GFR Calculation 180.6 mL/min (90-130) H 06/23/22 14:43 Glucose 147 mg/dL (65-115) H 06/23/22 14:43 POC Glucose 173 mg/dL (70-110) H 06/23/22 13:49 Estimat Average Glucose 177 06/21/22 19:28 Hemoglobin A1c 7.8 % (4.0-6.0) H 06/21/22 19:28 Calculated Osmolality 289 mOsm/kg (285-295) 06/23/22 14:43 Calcium 7.8 mg/dL (8.5-10.5) L 06/23/22 14:43 Magnesium 1.9 mg/dL (1.7-2.3) 06/22/22 01:56 Total Bilirubin 0.8 mg/dL (0.15-1.2) 06/23/22 14:43 AST 26 U/L (0-32) 06/23/22 14:43 ALT 74 U/L (0-33) H 06/23/22 14:43 Alkaline Phosphatase 64 U/L (35-105) 06/23/22 14:43 Troponin T Baseline 7 ng/L (0-10) 06/21/22 22:30 Total Protein 6.2 g/dL (6.6-8.7) L 06/23/22 14:43 Albumin 3.5 g/dL (3.5-5.2) 06/23/22 14:43 Globulin 2.7 g/dL (1.3-4.6) 06/23/22 14:43 Lipase 12 U/L (13-60) L 06/21/22 19:28 Procalcitonin 1.13 ng/mL (0-0.5) H 06/22/22 01:56 TSH 0.97 uIU/mL (0.27-4.20) 06/21/22 22:30 HCG, Qual Negative (Negative) 06/21/22 19:28 Urine Color Yellow (Yellow) 06/21/22 19:20 Urine Appearance Clear (CLEAR) 06/21/22 19:20 Urine pH 5 (5-7) 06/21/22 19:20 Ur Specific [place] 1.020 (1.005-1.030) 06/21/22 19:20 Urine Protein Neg (Negative) 06/21/22 19:20 Urine Glucose (UA) 4+ (Normal) H 06/21/22 19:20 Urine Ketones 3+ (Negative) H 06/21/22 19:20 Urine Blood Neg (Negative) 06/21/22 19:20 Urine Nitrate Negative (Negative) 06/21/22 19:20 Urine Bilirubin Neg (Negative) 06/21/22 19:20 Urine Urobilinogen Norm mg/dL (Negative) 06/21/22 19:20 Ur Leukocyte Esterase Negative (Negative) 06/21/22 19:20 Urine Opiates Screen Negative ng/mL (Negative) 06/21/22 09:46 Ur Barbiturates Screen Negative ng/mL (Negative) 06/21/22 09:46 Ur Phencyclidine Scrn Negative ng/mL (Negative) 06/21/22 09:46 Ur Amphetamines Screen Negative ng/mL (Negative) 06/21/22 09:46 U Benzodiazepines Scrn Negative ng/mL (Negative) 06/21/22 09:46 Urine Cocaine Screen Negative ng/mL (Negative) 06/21/22 09:46 U Marijuana (THC) Screen Negative ng/mL (Negative) 06/21/22 09:46 Serum Ketones Negative (Negative) 06/21/22 19:28 Hepatitis A IgM Ab Non-reactive (Nonreactive) 06/21/22 19:28 Hep Bs Antigen Non-reactive (Nonreactive) 06/21/22 19:28 Hep Bs Antibody 3.5 (11.5-1000) L 06/21/22 19:28 Hep B Core Total Ab Non-reactive (Nonreactive) 06/21/22 19:28 Hepatitis C Antibody Non-reactive (Nonreactive) 06/21/22 19:28 HIV 1&2 Ab & HIV 1 Ag Non-reactive (Non-Reactiv) 06/21/22 19:28 HIV 1&2 Antibody Non-reactive (Non-Reactiv) 06/21/22 19:28 Vitals Last Vital Signs Temp 98.6 F 06/23/22 12:30 Pulse 117 H 06/23/22 16:30 Resp 19 H 06/23/22 16:30 BP 163/86 06/23/22 16:30 Pulse Ox 99 06/23/22 16:30 O2 Del Method 06/23/22 16:30 Discharge Plan Discharge Patient Disposition: Home Condition: Fair Prescriptions: No Action insulin aspart U-100 [Novolog U-100 Insulin aspart] 100 unit/mL solution 100 unit SUBCUT DAILY Qty: 90 3RF Rx Instructions: thorugh insulin pump levothyroxine 50 mcg tablet 50 mcg PO DAILY Qty: 90 3RF Glucagon (HCl) Emergency Kit 1 mg recon soln 1 mg SUBCUT Q20M PRN (Reason: hypoglycemia) Qty: 1 0RF Rx Instructions: until target blood sugar attained Nortrel 0.5/35 (28) 0.5-35 mg-mcg tablet See Rx Instructions .ROUTE .COMPLEX Qty: 84 0RF Dose Instruction: Take 1 tablet by mouth once daily Rx Instructions: Take 1 tablet by mouth once daily Discharge Orders: Discharge Order (Routine); Ordered 06/23/22 Ordered By: Bessie Alonso Referrals: Shruthi Hernandes MD [Primary Care Provider] - 4-7 days Patient Instructions: Diabetic Ketoacidosis (DC), Opioid Safety Discharge Attestations Time Spent in Discharge Care*: greater than 30 min Quality Metrics Clinical Quality Measures [ No reported AMI, CVA or VTE this stay] Coding Level of Care Code Acute Code for Chg Fwd Diagnoses DKA (diabetic ketoacidosis) E10.10 Diabetes mellitus complication detail: without coma Diabetes mellitus type: type 1 Hyperlipemia, mixed E78.2 Hypothyroid E03.9 Type 1 diabetes E10.9 High anion gap metabolic acidosis E87.29 Elevated liver enzymes R74.8
[2022-06-23 17:16] LABS: Glucose Point of Care 174 mg/dL (70-110)
--- NOTE | 2022-06-23 18:08 | PC.NURSE ---
Extensive education provided to patient with S/O at bedside regarding follow up care, insulin management, S/S of hypo and hyperglycemia, Patient provided written information on these topics as well. Patient and S/O had no questions at time of discharge. All belongings with patient at time of discharge. Patient brought by wheelchair and then ambulated to personal vehicle with S/O as primary river driver. [id number].
[2022-06-23 18:40] LABS: Adenovirus Not Detected (NOT DETECT); Chlamydia Pneumoniae Not Detected (NOT DETECT); Coronavirus 229E,HKU1,NL63,OC4 Not Detected (NOT DETECT); Human Metapneumovirus Not Detected (NOT DETECT); Human Rhinovirus/Enterovirus Not Detected (NOT DETECT); Influenza A Not Detected (NOT DETECT); Influenza A H1 Not Detected (NOT DETECT); Influenza A H1-2009 Not Detected (NOT DETECT); Influenza A H3 Not Detected (NOT DETECT); Influenza B Not Detected (NOT DETECT); Mycoplasma Pneumoniae Not Detected (NOT DETECT); Parainfluenza Virus Type 1 Not Detected (NOT DETECT); Parainfluenza Virus Type 2 Not Detected (NOT DETECT); Parainfluenza Virus Type 3 Not Detected (NOT DETECT); Parainfluenza Virus Type 4 Not Detected (NOT DETECT); Respiratory Syncytial Virus A Not Detected (NOT DETECT); Respiratory Syncytial Virus B Not Detected (NOT DETECT); SARS-COV-2 Not Detected (NOT DETECT)
== END 2022-06-23 17:55 | disposition home or self-care (01) | DRG 639 ==
LOC: ER 21:21 → ICU 21:59
PROVIDERS: Nurse Practitioner Family; Admitting Provider Internal Medicine; Emergency Provider Emergency Medicine; PCP Family Medicine; Visit Provider Student in an Organized Health Care Education/Training Program
DX: E10.10 Type 1 diabetes mellitus with ketoacidosis without coma (principal); E78.2 Mixed hyperlipidemia; E03.9 Hypothyroidism, unspecified; E86.0 Dehydration; R74.8 Abnormal levels of other serum enzymes; Z79.4 Long term (current) use of insulin
CPT/HCPCS: 36415; 36416; 36600; 71045; 76705; 80048; 80053; 80306; 81003; 82009; 82803; 82962; 83036; 83690; 83735; 84145; 84443; 84484; 84703; 85025; 86705; 86706; 86709; 86803; 87040; 87340; 87486; 87581; 87633; 87806; 93005; 96365; 96366; 96367; 96372; 96375; 96376; 99285; C1751; J1650; J1815; J2270; J2405; J3010; J3480; J7030; J7050; J7070

== ENCOUNTER → 2022-06-29 09:45 | Outpatient (BNVA) | payer BC, SELFPAY | PROVIDERS: PCP Family Medicine; Visit Provider Family Medicine | DX: E10.10 Type 1 diabetes mellitus with ketoacidosis without coma (principal) | CPT/HCPCS: 80053; 85025 ==

== ENCOUNTER → 2022-08-26 10:48 | Outpatient (BNVA) | payer BC, SELFPAY | PROVIDERS: PCP Family Medicine; Visit Provider Family Medicine | DX: I10 Essential (primary) hypertension (principal) | CPT/HCPCS: 80048 ==

== ENCOUNTER → 2022-11-11 13:15 | Outpatient (BNVA) | payer BC, SELFPAY | PROVIDERS: PCP Family Medicine; Visit Provider Family Medicine | DX: I10 Essential (primary) hypertension (principal) | CPT/HCPCS: 80053 ==